=== PATIENT | male | born 1965 | race Caucasian/White ===

== ENCOUNTER 2021-07-03 16:03 | Emergency (ER) | payer BC, SELFPAY ==
[2021-07-03 16:18] VITALS: BP 147/88; PULSE 94; RESP 18; TEMP 37.1; O2SAT 98
--- NOTE | 2021-07-03 16:20 | ED.LOWEXIN ---
HPI - Extremity Injury (Lower) General Chief Complaint: Extremity Problem,Nontraumatic Stated Complaint: Rt leg Pain Time Seen by Provider: 07/03/21 16:20 Source: patient, RN notes reviewed and old records reviewed Mode of arrival: ambulatory Limitations: no limitations History of Present Illness HPI Narrative: 55-year-old male presents to the [facility] with complaints of right calf pain since Tuesday. Has tried taking Tylenol. Patient states that he is concerned that he might have a blood clot. No trauma. No long car rides or plane rides. No discoloration. Positive pedal pulse. Sensation intact in all 5 toes. Capillary refill under 2 seconds. No edema noted. Right and left legs are equivalent. Walks with a normal gait Related Data Home Medications Medication Instructions Recorded Confirmed mesalamine 1.2 g PO DAILY 07/03/21 07/03/21 Allergies Allergy/AdvReac Type Severity Reaction Status Date / Time No Known Allergies Allergy Verified 07/03/21 16:21 Review of Systems Review of Systems: All systems reviewed & are unremarkable except as noted in HPI and below Constitutional: Constitutional: Reports no additional constitutional complaints, Denies chills and Denies fever(s) Eyes: Eyes: Reports no additional eye complaints ENT: Reports system reviewed and no additional complaints, except as documented Cardiovascular: Cardiovascular: Reports no additional cardiovascular complaints and Denies chest pain Respiratory: Respiratory: Reports no additional respiratory complaints, Denies cough and Denies dyspnea Gastrointestinal: Gastrointestinal: Reports no additional gastrointestinal complaints, Denies abdominal pain, Denies nausea and Denies vomiting Musculoskeletal: Musculoskeletal: Reports no additional musculoskeletal complaints Integumentary/Breasts: Skin/Breast: Reports system reviewed and no additional complaints, except as docu Neurologic: Reports system reviewed and no additional complaints, except as documented Psychiatric: Psychiatric: Reports no additional psychiatric complaints Allergic/Immunologic: Allergic/Immunologic: Reports no additional allergic/immunologic complaints PMFSH Past Medical History Medical History (Updated 07/03/21 @ 16:50 by Ewelina Gao) Fusion of spine of cervical region Ulcerative colitis Family History Family History Other Family history of coronary artery disease Hypertension Social History Social History Second hand tobacco smoke exposure: No Alcohol intake: never Comments At the time of my signature, I reviewed and agree with the nursing past medical, surgical, social, and family history. There is no relevant family history pertinent to the patient complaint. Exam Const: General: healthy appearing, no acute distress and alert Nutritional Appearance: well nourished Orientation/consciousness: patient oriented x3 Limitations: no limitations HENMT: Head: normal to inspection Eyes: Pupils: Equal, round and reactive pupils present Neck: Neck: normal visual inspection, no lymphadenopathy and no meningeal signs Chest: Chest palpation & inspection: normal inspection of the chest Resp: Effort & Inspection: normal respiratory effort and no use of accessory muscles Auscultation: clear to auscultation bilaterally, no crackles, no rales, no rhonchi and no wheezes Cardio: Rate: regular rate Rhythm: regular rhythm Back/Spine/Pelvis: Back: no CVA tenderness Skin: General skin exam: normal color Rashes: no rashes Wounds: no wounds Neuro: General: patient oriented x3, moves all extremities, no meningeal signs and no focal motor deficits Speech: normal speech Gait exam (Neuro): Normal gait present Extrem: General: normal to inspection, full ROM, capillary refill normal, normal exam except as noted, no cyanosis and no edema Right lower extremity: normal
== END 2021-07-03 16:35 | disposition home or self-care (01) ==
PROVIDERS: Emergency Provider Nurse Practitioner; PCP Family Medicine
DX: S86.111A Strain of other muscle(s) and tendon(s) of posterior muscle group at lower leg level, right leg, initial encounter (principal); X58.XXXA Exposure to other specified factors, initial encounter
CPT/HCPCS: 99213; G0463

== ENCOUNTER → 2021-10-05 03:18 | Outpatient (CLI) | payer BC, SELFPAY ==
[2021-10-05 11:01] LABS: SARS-CoV-2 RNA PCR Negative
== END ==
PROVIDERS: PCP Family Medicine; Visit Provider Internal Medicine Gastroenterology
DX: Z01.812 Encounter for preprocedural laboratory examination (principal); Z20.822 Contact with and (suspected) exposure to COVID-19
CPT/HCPCS: C9803; U0003; U0005

== ENCOUNTER 2021-10-16 01:36 | Day surgery (SDC) | payer BC, SELFPAY ==
--- NOTE | 2021-10-06 15:20 | PC.NURSE ---
Prior interview completed. Pt updated on new information.
--- NOTE | 2021-10-16 10:44 | WPDANESEPPF ---
Anes - Initial Pre Proc Eval Procedure: Operation Date: 10/16/21 13:00 Proposed Procedures p Colonoscopy - Luis Felipe Branham MD Date/Time: 10/16/21 10:44 Surgeon: Luis Felipe Branham MD Pre Op Diagnosis: ulcerative colitis Patient Data Age: 56 Gender: M Height: 1.78 m Weight: 95 kg Allergies Allergy/AdvReac Type Severity Reaction Status Date / Time No Known Allergies Allergy Verified 10/16/21 11:45 Home Medications Medication Instructions Recorded Confirmed Type mesalamine 1.2 gram tablet,delayed 2.4 g PO DAILY #30 tablet 08/05/21 09/22/21 Rx release Patient hx anesthesia problems: none Family hx anesthesia problems: none Results Review: All pre-operative results and documents have been reviewed as part of the pre-operative evaluation. [facility] Past Medical History Medical History (Updated 10/16/21 @ 10:45 by Nicholas Dubose MD) Fusion of spine of cervical region Obesity (BMI 30.0-34.9) Ulcerative colitis Family History Family History Other Family history of coronary artery disease Hypertension Social History Social History Smoking status: Never smoker Second hand tobacco smoke exposure: No Alcohol intake: never Substance use: never Living arrangements: with family Spiritual care concerns: No Anes - Eval Final PreProcedure Day of Procedure 10/16/21 10:44 Patient weight: obese Heart: regular rate and rhythm Lungs: clear to auscultation and normal air movement Airway: Mallampati scale class II Neurological: alert and oriented Last oral intake: >/= 8 hours ASA classification: III Emergent: no Anesthetic plan: proceed Anesthesia type and monitoring: general GIVS Results Review: All pre-operative results and documents have been reviewed as part of the pre-operative evaluation. Informed Consent: The patient's anesthetic plan and its attendant risks and benefits were discussed with the patient/family/POA. Questions were solicited and answers provided to the satisfaction of the patient/family/POA.
[2021-10-16 11:46] VITALS: BP 128/88; PULSE 115; RESP 20; TEMP 36.3; O2SAT 97
--- NOTE | 2021-10-16 11:50 | P.CONGI_ITS ---
Assessment and Plan Assessment and plan (1) Ulcerative colitis: Code(s): K51.90 - Ulcerative colitis, unspecified, without complications Status: Acute Assessment and Plan: Patient with ulcerative colitis. Clinically in remission while taking Lialda 2.4g p.o. daily. Plan to continue this medication. Surveillance colonoscopy is advised at this time ended intervals in the future. Further recommendations will be given after endoscopy. GI Consult Note Consult date/time: 10/16/21 11:50 HPI: Jakub Tran is a 56 year old male Presents for screening colonoscopy. Patient diagnosed with ulcerative colitis since at least 2013. His current weight appetite bowel movements are normal. Currently takes mesalamine 2.4g p.o. daily. He states his bowel habits are normal with no bleeding. His family history is noncontributory. Last colonoscopy 2018 suggested that his colitis w as in remission. Patient presents today for screening colonoscopy. Review of Systems Review of Systems: All systems reviewed & are unremarkable except as noted in HPI and below PMFSH Past Medical History Medical History (Updated 10/16/21 @ 10:45 by Nicholas Dubose MD) Fusion of spine of cervical region Obesity (BMI 30.0-34.9) Ulcerative colitis Family History Family History Other Family history of coronary artery disease Hypertension Social History Social History Smoking status: Never smoker Second hand tobacco smoke exposure: No Alcohol intake: never Substance use: never Living arrangements: with family Spiritual care concerns: No Meds Home Medications and Allergies Home Medications Medication Instructions Recorded Confirmed Type mesalamine 1.2 gram tablet,delayed 2.4 g PO DAILY #30 tablet 08/05/21 09/22/21 Rx release Allergies Allergy/AdvReac Type Severity Reaction Status Date / Time No Known Allergies Allergy Verified 10/16/21 11:45 Vital Signs Vital Signs - 24 hr 10/16/21 11:46 Temperature 97.4 F L Pulse Rate 115 H Respiratory Rate 20 Blood Pressure 128/88 Pulse Oximetry 97 Exam Narrative: Physical exam reveals patient be alert. Vital signs stable. HEENT exam is unremarkable. Patient is anicteric. Lungs are clear. Heart without murmur. Abdomen bowel sounds are present soft nontender with no organomegaly. Digital external rectal exam is normal.
[2021-10-16] MEDS: LACTATED RINGERS 1,000 ML 150 ML IV CONT (12:00)
[2021-10-16 13:09] VITALS: BP 102/66; PULSE 94; RESP 20; O2SAT 96
[2021-10-16 13:19] VITALS: BP 104/64; PULSE 92; RESP 20; O2SAT 96
[2021-10-16 13:29] VITALS: BP 123/84; PULSE 86; RESP 20; O2SAT 98
== END 2021-10-16 13:51 | disposition home or self-care (01) ==
PROVIDERS: PCP Family Medicine; Visit Provider Internal Medicine Gastroenterology
PROC: 0DJD8ZZ Inspection of Lower Intestinal Tract, Via Natural or Artificial Opening Endoscopic (ICD-10-PCS; CPT 45378; principal; 2021-10-16 13:00)
DX: C19 Malignant neoplasm of rectosigmoid junction (principal); K51.00 Ulcerative (chronic) pancolitis without complications; K64.8 Other hemorrhoids; Z98.1 Arthrodesis status; E66.9 Obesity, unspecified; Z68.31 Body mass index [BMI] 31.0-31.9, adult
CPT/HCPCS: 45380; 88304; 88305; J2001; J2704; J7120

== ENCOUNTER 2022-09-29 21:54 | Inpatient (IN) | payer BC, SELFPAY ==
[2022-09-29] VITALS (12 sets, daily range): BP systolic 133–144; BP diastolic 83–92; PULSE 83–87; RESP 16; TEMP 36.8; O2SAT 97–100
--- NOTE | ~2022-09-29 | XR_ITS ---
Portable chest x-ray Comparison: 09/29/2017 Clinical History: Abdominal pain Findings: Right-sided central venous port is in satisfactory position. Lungs are clear, without foca l consolidation or pleural effusion. Cardiomediastinal silhouette is stable. Bones and soft tissues are unremarkable. Impression: Clear lungs. Support line, as above. Reviewed, dictated and finalized at location M. Impression: Clear lungs. Support line, as above.
--- NOTE | ~2022-09-29 | CT_ITS ---
CT of the Abdomen and Pelvis: Indication: Obstruction Technique: 2.5 mm axial scans were obtained through the abdomen and pelvis following intravenous adm inistration of 100 cc of Omnipaque 350. Dose reduction technique was used on this scan by utilizing a utomated exposure control and iterative reconstruction technique. The dose-length product (DLP) was 7 82.03 mGy-cm. Findings: Scans through the lung bases demonstrate left basilar atelectasis or scarring. The liver, spleen, pancreas, adrenals and kidneys are within normal limits. Gallbladder not visualize d. No evidence of aortic aneurysm. No lymphadenopathy. Right lower quadrant ostomy is present, with apparent prior total colectomy. Multiple distal small robyn wel loops are dilated, leading up just to the orifice of the ostomy Images through the pelvis were performed. Urinary bladder unremarkable. Prostate gland mildly enlarge d. Probable presacral fluid collection measuring 5.5 x 3.2 x 5.1 cm in size.. Trace amount of abdomin opelvic ascites. Impression: Right lower quadrant ostomy with dilated small bowel loops leading up just to the orifice of the osto my. Findings raise the possibly of bowel obstruction at the level of the ostomy itself. Correlate wit h physical exam. 5.5 x 3.2 x 5.1 cm presacral fluid collection. Correlate for abscess versus postoperative seroma or o ther postoperative change related to prior colectomy. Trace abdominopelvic ascites. Reviewed, dictated and finalized at [facility]. Impression: Right lower quadrant ostomy with dilated small bowel loops leading up just to t he orifice of the ostomy. Findings raise the possibly of bowel obstruction at t he level of the ostomy itself. Correlate with physical exam. 5.5 x 3.2 x 5.1 cm presacral fluid collection. Correlate for abscess versus pos toperative seroma or other postoperative change related to prior colectomy. Trace abdominopelvic ascites.
--- NOTE | ~2022-09-29 | XR_ITS ---
Portable upright view of the abdomen Clinical history: NG tube placed Findings: NG tube is in satisfactory position. Mildly distended right upper quadrant small bowel loop s are present. No free air evident. No abnormal mass lesion or calcification is seen. Osseous structu res are intact. Impression: NG tube in satisfactory position. Mildly distended right upper quadrant small bowel loops. Correlate for small bowel obstruction. Reviewed, dictated and finalized at location . Impression: NG tube in satisfactory position. Mildly distended right upper quadrant small bowel loops. Correlate for small robyn wel obstruction.
--- NOTE | ~2022-09-29 | CT_ITS ---
EXAMINATION: CT abdomen pelvis wo con DATE: 09/30/2022 13:06 INDICATION: Small bowel obstruction. TECHNIQUE: Computed tomography (CT) of the abdomen and pelvis was performed without intravenous contr ast. Automated exposure control and iterative reconstruction technique were employed. The dose-length product was 914.63 mGy-cm. COMPARISON: CT abdomen and pelvis 09/30/2022 FINDINGS: The visualized portions of the lung bases demonstrate mild atelectasis. No pleural effusion . The heart size is normal. No pericardial effusion. The nasogastric tube tip is in the stomach. The liver and spleen are normal. There is contrast in the gallbladder. The pancreas and adrenal glands ar e normal. There is cortical thinning of the kidneys. The bladder is distended. There are changes of t otal colectomy. There is a 5.5 x 3.2 x 5.1 cm fluid collection in the presacral region. There is an e nd ileostomy on the last right. There are no dilated loops of bowel. There are no pathologically enla rged lymph nodes. There is trace ascites. There is mild thoracolumbar spondylosis. IMPRESSION: 1. Nonobstructed bowel. 2. 5.5 x 3.2 x 5.1 fluid collection in the presacral region status post colectomy, which may be a ser sis. Reviewed, dictated and finalized at location A. IMPRESSION: 1. Nonobstructed bowel. 2. 5.5 x 3.2 x 5.1 fluid collection in the presacral region status post colecto my, which may be a seroma.
--- NOTE | 2022-09-29 23:33 | ECG_ITS ---
Measurements Intervals [place] Rate: 80 P: 8 NE: 179 QRS: 67 QRSD: 99 T: 48 QT: 369 QTc: 427 Interpretive Statements SINUS RHYTHM BASELINE ARTIFACT- I, II, III, V3 NORMAL ECG NO PREVIOUS ECG AVAILABLE FOR COMPARISON Electronically Signed On 09-30-2022 6:32:17 CDT by Jayme Jolley D.O.
[2022-09-29 23:54] LABS: Basophils Percent Auto 0.3 % (0.2-1.2); Eosinophils Absolute Auto 0.1 K/mm3 (0-0.3); Eosinophils Percent Auto 1.2 % (0-4.4); Hemoglobin 13.8 g/dL (14.0-18.0); Immature Granulocyte Absolute 0.04 K/mm3 (0.00-0.031); Immature Granulocyte Percent A 0.3 % (0-0.5); Lymphocytes Absolute Auto 0.89 K/mm3 (0.9-3.2); Lymphocytes Percent Auto 7.7 % (18.3-44.2); Mean Corpuscular HGB Conc 32.1 g/dl (32-36); Mean Corpuscular Hemoglobin 27.8 pg (26-34); Mean Corpuscular Volume 86.5 fl (80-100); Mean Platelet Volume 9.1 fl (7.4-10.4); Monocytes Absolute Auto 0.6 K/mm3 (0.1-0.6); Monocytes Percent Auto 5.4 % (2.6-8.5); Neutrophils Absolute Auto 9.8 K/mm3 (1.3-6.7); Neutrophils Percent Auto 85.1 % (45.5-73.1); Platelet Count Result 246 k/mm3 (150-375); Red Blood Count 4.97 M/mm3 (4.6-6.20); Red Cell Distribution Width 13.9 % (11.5-14.5); White Blood Count 11.5 K/mm3 (4.5-10.0)
[2022-09-29] MEDS: SODIUM CHLORIDE 0.9% IV 1,000 ML 999 ML IV CONT (23:57)
[2022-09-30] VITALS (70 sets, daily range): BP systolic 110–147; BP diastolic 76–100; PULSE 86–127; RESP 15–38; O2SAT 92–99
[2022-09-30 00:05] LABS: INR 2.9; Prothrombin Time 29.5 Seconds (11.1-14.7)
[2022-09-30 00:06] LABS: Partial Thromboplastin Time 40.8 SECONDS (22.3-36.8)
[2022-09-30 00:07] LABS: Alanine Aminotransferase 23 U/L (6-50); Albumin Level 4.5 g/dL (3.5-5.1); Alkaline Phosphatase 93 U/L (38-126); Anion Gap 6 mmol/L (8-16); Aspartate Amino Transferase 28 U/L (17-59); Bilirubin,Total 0.5 mg/dL (0.2-1.3); Blood Urea Nitrogen 13 mg/dL (9-20); Calcium 8.8 mg/dL (8.4-10.2); Carbon Dioxide 27 mmol/L (22-30); Chloride 106 mmol/L (98-107); Estimated CRCL calculation 83 ml/min; Estimated Glomerular Filt Rate > 60; Glucose 126 mg/dL (65-110); Lipase 95 U/L (23-300); Magnesium 2.2 mg/dL (1.6-2.3); Potassium 4.5 mmol/L (3.4-5.0); Sodium 139 mmol/L (137-145)
[2022-09-30] MEDS: ONDANSETRON INJ 4 MG/2 ML VIAL 8 MG IV PUSH (01:13)
[2022-09-30] MEDS: HYDROmorphone HCL INJ (*CRX) 1 MG/ML SYR 0.5 MG IV PUSH (01:13)
--- NOTE | 2022-09-30 02:27 | ED.GENADULT ---
HPI - General Adult General Chief complaint: Abdominal Pain Stated complaint: blocked ostomy Time Seen by Provider: 09/29/22 22:53 History of Present Illness HPI narrative: This is a 57-year-old male with an ostomy secondary to colon cancer. Earlier today around 630 the patient started experiencing sharp abdominal pain to the left of his ostomy site. Is nonradiating, 6/10 intensity and comes and goes. He has never experienced pain like this before there are no alleviating or exacerbating factors. He has had an episode of nausea and vomiting. He notes that he has had nothing come out of his ostomy site since then which is abnormal for him. He denies fever, chills, chest pain, difficulty breathing or urinary symptoms. Patient's surgeon is Dr. Hernández at [place]. Patient's GI doctor is Dr. Branham. Related Data Allergies Allergy/AdvReac Type Severity Reaction Status Date / Time No Known Allergies Allergy Verified 09/29/22 22:28 [facility] Past Medical History Medical History Adenocarcinoma of colon Fusion of spine of cervical region Obesity (BMI 30.0-34.9) Ulcerative colitis Surgical History Surgical History H/O ileostomy Family History Family History Mother [place] cell cancer Other Family history of coronary artery disease Hypertension Social History Social History Smoking status: Never smoker Second hand tobacco smoke exposure: No Alcohol intake: never Substance use: never Living arrangements: with family Spiritual care concerns: No Exam Narrative: APPEARANCE: No apparent distress. Head: atraumatic. EYES: EOMI, NOSE: Atraumatic NECK: Trachea midline RESPIRATORY: No increased rate of breathing , clear to auscultation bilateral CARDIOVASCULAR: RRR, no peripheral edema ABDOMINAL: tenderness palpation in the midline next to his ostomy. No guarding no rebound. Abdomen is not distended. No contents in the ostomy. MUSCULOSKELETAL: No obvious deformities NEURO: Alert. Moving 4/4 extremities SKIN:: Warm, dry. Normal color PSYCHIATRIC: Normal affect Course Vital Signs Vital signs: Vital Signs Temperature 98.2 F 09/29/22 22:23 Pulse Rate 87 09/29/22 22:23 Respiratory Rate 16 09/29/22 22:23 Blood Pressure 140/92 H 09/29/22 22:23 Pulse Oximetry 99 09/29/22 22:23 Oxygen Delivery Room Air 09/29/22 22:23 Temperature 98.2 F 09/29/22 22:23 Pulse Rate 99 09/30/22 00:45 Respiratory Rate 17 09/30/22 00:45 Blood Pressure 133/83 09/29/22 23:31 Pulse Oximetry 97 09/30/22 00:45 Oxygen Delivery Room Air 09/29/22 22:23 Medical Decision Making MDM Narrative Medical decision making narrative: -Presentation: 57-year-old male presenting ED with decreased output from his ostomy. 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 INR was therapeutic at 2.9. Metabolic panel is unremarkable. Urine was not indicative of infection. Chest x-ray was unremarkable. My interpretation of CT abdomen pelvis showed dilated loops of bowel with air-fluid levels. This is consistent with obstruction. CT abdomen pelvis was read by stat read as: postoperative changes in the right lower quadrant, 2.9 x 5 x 7 cm presacral fluid collection, no free air intestinal obstruction, slight hyperemia associated inflammatory changes involving a few
[2022-09-30 03:03] LABS: Appearance Urine Clear (Clear); Bilirubin Urine Negative (Negative); Blood Urine Negative (Negative); Color Urine Yellow (Yellow); Glucose Urine UA Negative (Negative); Ketones Urine Negative (Negative); Leukocyte Esterase Ur Negative LEU/UL (Negative); Nitrate Urine Negative (Negative); Protein Urine Negative (Negative); Urobilinogen Urine 0.2 mg/dL (<2.0); pH Urine 5.5 (5.0-9.0)
--- NOTE | 2022-09-30 03:13 | PM.IMHP ---
H&P: HPI History of Present Illness Date/Time: 09/30/22 03:13 Chief Complaint: 57 years old male with past medical history of adeno carcinoma of the colon status post ileostomy ulcerative colitis presents to the hospital with nausea associated with vomiting multiple times a day associated with decreased output from colostomy patient also complains of generalized abdominal pain dull in nature no aggravating or relieving factors at the ER patient was found to have probable bowel obstruction unlikely patient has enteritis pending final CT scan reading patient was given IV fluid pain control Zofran symptom has improved patient was admitted to the hospital for further evaluation and treatment of bowel obstruction Review of Systems Review of Systems: Twelve system review was done negative except above PMFSH Past Medical History Medical History Adenocarcinoma of colon Fusion of spine of cervical region Obesity (BMI 30.0-34.9) Ulcerative colitis Surgical History Surgical History H/O ileostomy Family History Family History Mother [place] cell cancer Other Family history of coronary artery disease Hypertension Social History Social History Smoking status: Never smoker Second hand tobacco smoke exposure: No Alcohol intake: never Substance use: never Living arrangements: with family Spiritual care concerns: No Meds Home Medications and Allergies Home Medications Medication Instructions Recorded Confirmed Type enoxaparin 80 mg/0.8 mL 80 mg (0.8 mL) subcut Q12H #8 mL 07/08/22 07/08/22 Rx subcutaneous syringe (Lovenox) pregabalin 50 mg capsule 50 mg PO BID #1 cap 07/08/22 07/08/22 Rx tamsulosin 0.4 mg capsule See Rx Instructions .Route 07/09/22 Rx .COMPLEX #90 caps Allergies Allergy/AdvReac Type Severity Reaction Status Date / Time No Known Allergies Allergy Verified 09/29/22 22:28 Vital Signs Vital Signs - 24 hr 09/29/22 22:23 03 22:34 09/29/22 22:36 Temperature 98.2 F Pulse Rate 87 Respiratory Rate 16 Blood Pressure 140/92 H 144/84 H Pulse Oximetry 99 100 Oxygen Delivery Room Air 09/29/22 22:45 09/29/22 22:46 09/29/22 23:00 Temperature Pulse Rate Respiratory Rate Blood Pressure 136/84 Pulse Oximetry 97 98 98 Oxygen Delivery 09/29/22 23:01 09/29/22 23:15 09/29/22 23:16 Temperature Pulse Rate Respiratory Rate Blood Pressure 139/90 140/85 Pulse Oximetry 98 97 97 Oxygen Delivery 09/29/22 23:30 09/29/22 23:31 09/29/22 23:49 Temperature Pulse Rate 83 Respiratory Rate Blood Pressure 133/83 Pulse Oximetry 98 98 Oxygen Delivery 09/30/22 00:00 09/30/22 00:15 09/30/22 00:30 Temperature Pulse Rate 88 91 90 Respiratory Rate 19 19 19 Blood Pressure Pulse Oximetry 98 99 97 Oxygen Delivery 09/30/22 00:45 09/30/22 01:12 09/30/22 01:15 Temperature Pulse Rate 99 94 87 Respiratory Rate 17 24 H 22 H Blood Pressure Pulse Oximetry 97 99 98 Oxygen Delivery 09/30/22 01:17 09/30/22 01:30 09/30/22 01:31 Temperature Pulse Rate 92 95 97 Respiratory Rate 26 H 16 16 Blood Pressure 146/85 H 134/78 Pulse Oximetry 98 92 94 Oxygen Delivery 09/30/22 01:45 09/30/22 01:46 09/30/22 02:00 Temperature Pulse Rate 96 97 96 Respiratory Rate 16 15 17 Blood Pressure 132/81 Pulse Oximetry 94 92 Oxygen Delivery 09/30/22 02:01 09/30/22 02:15 09/30/22 02:16 Temperature Pulse Rate 98 98 100 Respiratory Rate 16 17 16 Blood Pressure 134/80 139/86 Pulse Oximetry 95 95 Oxygen Delivery 09/30/22 02:30 09/30/22 02:31 Temperature Pulse Rate 99 100 Respiratory Rate 18 18 Blood Pressure 141/84 H Pulse Oximetry 95 Oxygen Delivery Exam N
[2022-09-30 03:15] LABS: Specific Grav Ur 1.038 (1.001-1.035)
[2022-09-30 03:16] LABS: Add Urine Microscopic? NO
[2022-09-30] MEDS: ONDANSETRON INJ 4 MG/2 ML VIAL IV PUSH (05:59)
[2022-09-30 06:12] LABS: Basophils Percent Auto 0.2 % (0.2-1.2); Eosinophils Percent Auto 0.1 % (0-4.4); Hematocrit 44.6 % (42.0-52.0); Hemoglobin 14.3 g/dL (14.0-18.0); Immature Granulocyte Absolute 0.05 K/mm3 (0.00-0.031); Immature Granulocyte Percent A 0.4 % (0-0.5); Lymphocytes Absolute Auto 1.33 K/mm3 (0.9-3.2); Lymphocytes Percent Auto 10.3 % (18.3-44.2); Mean Corpuscular HGB Conc 32.1 g/dl (32-36); Mean Corpuscular Hemoglobin 27.9 pg (26-34); Mean Corpuscular Volume 86.9 fl (80-100); Mean Platelet Volume 9.4 fl (7.4-10.4); Monocytes Absolute Auto 0.7 K/mm3 (0.1-0.6); Monocytes Percent Auto 5.7 % (2.6-8.5); Neutrophils Absolute Auto 10.7 K/mm3 (1.3-6.7); Neutrophils Percent Auto 83.3 % (45.5-73.1); Platelet Count Result 258 k/mm3 (150-375); Red Blood Count 5.13 M/mm3 (4.6-6.20); Red Cell Distribution Width 13.9 % (11.5-14.5); White Blood Count 12.9 K/mm3 (4.5-10.0)
[2022-09-30 06:31] LABS: Alanine Aminotransferase 24 U/L (6-50); Albumin Level 4.4 g/dL (3.5-5.1); Alkaline Phosphatase 95 U/L (38-126); Anion Gap 7 mmol/L (8-16); Aspartate Amino Transferase 27 U/L (17-59); Bilirubin,Total 0.5 mg/dL (0.2-1.3); Blood Urea Nitrogen 10 mg/dL (9-20); Calcium 8.6 mg/dL (8.4-10.2); Carbon Dioxide 24 mmol/L (22-30); Chloride 107 mmol/L (98-107); Estimated CRCL calculation 93 ml/min; Estimated Glomerular Filt Rate > 60; Glucose 141 mg/dL (65-110); Potassium 4.5 mmol/L (3.4-5.0); Sodium 138 mmol/L (137-145)
[2022-09-30 07:56] LABS: INR 2.4; Prothrombin Time 24.9 Seconds (11.1-14.7)
[2022-09-30] MEDS: SODIUM CHLORIDE 0.9% IV 1,000 ML 100 ML IV CONT (08:22)
--- NOTE | 2022-09-30 10:25 | PC.NURSE ---
dr obrien contacted regarding order for pts heparin bid. pts inr this am 2.4 instructed to hold heparin today and repeat inr in the am.
--- NOTE | 2022-09-30 11:07 | PC.NURSE ---
Per Dr Banegas, hold heparin due to his INR result of 2.4
--- NOTE | 2022-09-30 13:30 | PC.NURSE ---
Spoke with Dr Urrutia and he gave verbal order to remove NG tube and give patient food and drink.
--- NOTE | 2022-09-30 13:34 | PC.NURSE ---
NG tube removed.
--- NOTE | 2022-09-30 14:23 | PC.NURSE ---
Food tray ordered for patient. Patient requests soft foods at this time
--- NOTE | 2022-09-30 15:09 | PCCCNOTE ---
Care Coordination met with pt. this morning to discuss discharge planning. Pt.'s current D/C plan is to return home with his . Pt. is independent with ADLs and ambulation. He has a CPAP at home. Pt. had ostomy blockage but has passed. His NG tube has been removed and his diet will be advanced. Pt.'s will drive him home at D/C. He has no D/C needs.
--- NOTE | 2022-09-30 16:18 | PM.DS ---
DS: Admitting Diagnosis Discharge Date 09/30/22 Admitting Diagnosis SBO DS: Discharge Diagnosis Discharge Diagnosis Plan 1) Adenocarcinoma of colon: ?Code(s): C18.9 - Malignant neoplasm of colon, unspecified ?Status:?Acute ?Assessment and Plan: Status post total colectomy status post ileostomy Get old records Follow-up with PCP (2) Ulcerative colitis: ?Code(s): K51.90 - Ulcerative colitis, unspecified, without complications ?Status:?Acute ?Assessment and Plan: Patient had total colectomy (3) Bowel obstruction: ?Code(s): K56.609 - Unspecified intestinal obstruction, unspecified as to partial versus complete obstruction ?Status:?Acute ?Assessment and Plan: Ileostomy started flowing this morning and repeat Ct showed resolution of obstruction, with presacral seroma. Patietn will f/u with PCP in 3-5 days, surgery as scheduled Presacral seroma f/u with gen surgery as scheduled (4) Portal vein thrombosis: ?Code(s): I81 - Portal vein thrombosis ?Status:?Acute ?Assessment and Plan: Patient had recent thrombosis of portal vein associated with DVT of right leg was treated INR 2.9, conintue Warfarin and f/u with PCP for monitoring DS: Summary Hospital Course Hospital Course: presented to the ER with SBO, NG tube placed, however this morning patietn noticed that the ileostomy bag started receiving content, NG tube was removed, repeat Ct showed resolution of obstruction, patient tolerated diet and was discharged home to follow with PCP and Surgery. CT showed presacral seroma likely from surgery. F/u with Surgery for further care Time Spent with Patient Time attestation: Total time spent providing and/or coordinating discharge services: DS: Data Data Completed and Pending Labs on day of discharge: Labs from last 24 hours 09/30/22 09/30/22 09/30/22 07:39 05:59 05:59 WBC 12.9 H RBC 5.13 Hgb 14.3 Hct 44.6 MCV 86.9 MCH 27.9 MCHC 32.1 RDW 13.9 Plt Count 258 MPV 9.4 Immature Gran % (Auto) 0.4 Neut % (Auto) 83.3 H Lymph % (Auto) 10.3 L [place] % (Auto) 5.7 Eos % (Auto) 0.1 Baso % (Auto) 0.2 Lymph # (Auto) 1.33 [place] # (Auto) 0.7 H Eos # (Auto) 0.0 Baso # (Auto) 0.0 Abs Immat Gran (auto) 0.05 H Absolute Neuts (auto) 10.7 H Absolute Nucleated RBC 0.0 Nucleated RBC % 0.0 PT 24.9 H INR 2.4 APTT Sodium 138 Potassium 4.5 Chloride 107 Carbon Dioxide 24 Anion Gap 7 L BUN 10 Creatinine 0.80 Estim Creat Clear Calc 93 Estimated GFR > 60 Glucose 141 H Lactic Acid Calcium 8.6 Magnesium Total Bilirubin 0.5 AST 27 ALT 24 Alkaline Phosphatase 95 Total Protein 7.0 Albumin 4.4 Lipase Urine Color Urine Appearance Urine pH Ur Specific [place] Urine Protein Urine Glucose (UA) Urine Ketones Ur Blood (Man) Urine Nitrate Urine Bilirubin Urine Urobilinogen Leukocyte Esterase Rfl 09/30/22 09/29/22 09/29/22 02:57 23:49 23:49 WBC RBC Hgb Hct MCV MCH MCHC RDW Plt Count MPV Immature Gran % (Auto) Neut % (Auto) Lymph % (Auto) [place] % (Auto) Eos % (Auto) Baso % (Auto) Lymph # (Auto) [place] # (Auto) Eos # (Auto) Baso # (Auto) Abs Immat Gran (auto) Absolute Neuts (auto) Absolute Nucleated RBC Nucleated RBC % PT INR APTT Sodium 139 Potassium 4.5 Chloride 106 Carbon Dioxide 27 Anion Gap 6 L BUN 13 Creatinine 0.90 Estim Creat Clear Calc 83 Estimated GFR > 60 Glucose 126 H Lactic Acid 1.0 Calcium 8.8 Magnesium 2.2 Total Bilirubin 0.5 AST 28 ALT 23 Alkaline Phosphatase 93 Total Protein 7.0 Albumin 4.5 Lipase 95 Urine Color Yellow Urine Appearance Clear Urine pH 5.5 Ur Specific [place] 1.038 H Urine Protein
== END 2022-09-30 17:08 | disposition home or self-care (01) | DRG 389 ==
LOC: ANHED 09-30 16:58 → ANH3MEDSUR 10-06 08:50
PROVIDERS: Admitting Provider Internal Medicine; Emergency Provider Emergency Medicine; PCP Family Medicine; Visit Provider Internal Medicine
DX: K56.609 Unspecified intestinal obstruction, unspecified as to partial versus complete obstruction (principal); C18.9 Malignant neoplasm of colon, unspecified; K51.90 Ulcerative colitis, unspecified, without complications; K91.872 Postprocedural seroma of a digestive system organ or structure following a digestive system procedure; Z93.2 Ileostomy status; Z86.718 Personal history of other venous thrombosis and embolism; Z98.1 Arthrodesis status
CPT/HCPCS: 36415; 71045; 74176; 74177; 80053; 81003; 83605; 83690; 83735; 85025; 85610; 85730; 93005; 96361; 96374; 96375; 99285; J1170; J2405; J7030; Q9967

== ENCOUNTER 2022-11-16 16:44 | Emergency (ER) | payer BC, SELFPAY ==
[2022-11-16 17:04] VITALS: BP 128/89; PULSE 94; RESP 18; TEMP 36.8; O2SAT 97
--- NOTE | 2022-11-16 17:04 | ED.EYEPROB ---
HPI - Eye Problem General Chief complaint: Eye Problems Stated complaint: swelling near rt eye Time Seen by Provider: 11/16/22 17:20 Mode of arrival: ambulatory Limitations: no limitations History of Present Illness HPI Narrative: 57-year-old male presents with concern for redness, tenderness, swelling that started in his right islam area yesterday. He reports the pain is radiating down to his teeth and down his neck. He denies swelling, redness in the neck. Denies dental pain. He reports blurry vision in the right eye. He denies headache, stabbing headache, fever, aches, chills, sweats. Denies pain in the eye. Denies drainage from the eye. Patient has a history of shingles, he says he usually gets on his back. Patient reports the swelling on the face is tender to touch but is not painful. MD chief complaint: other (Facial swelling, blurry vision) Related Data Home Medications Medication Instructions Recorded Confirmed warfarin 1 mg tablet 1 mg PO [id number] 10/27/22 11/16/22 warfarin 10 mg tablet 10 mg PO QMWF 10/27/22 11/16/22 Allergies Allergy/AdvReac Type Severity Reaction Status Date / Time No Known Allergies Allergy Verified 11/16/22 17:08 Review of Systems Review of Systems: CONSTITUTIONAL: Denies malaise, chills, sweats, or fever. EYES: Reports blurry vision in the right eye. Denies red eye pain, redness, or discharge. ENT: Denies rhinorrhea, congestion, sinus pain, otalgia or sore throat. CARDIOVASCULAR: Denies chest pain, palpitations, or edema. RESPIRATORY: Denies cough or dyspnea. GASTROINTESTINAL: Denies nausea, vomiting SKIN: Reports redness, swelling, tenderness to the right side of the face MUSCULOSKELETAL: Denies myalgia. NEUROLOGIC: Denies numbness, weakness, or headache. All systems reviewed & are unremarkable except as noted in HPI and below [facility] Past Medical History Medical History Adenocarcinoma of colon Fusion of spine of cervical region Obesity (BMI 30.0-34.9) Ulcerative colitis Surgical History Surgical History H/O ileostomy Family History Family History Mother Frakes cell cancer Other Family history of coronary artery disease Hypertension Social History Social History Smoking status: Never smoker Second hand tobacco smoke exposure: No Alcohol intake: never Substance use: never Living arrangements: with family Spiritual care concerns: No Comments At time of signature, agree with nursing past medical, surgical, social and family history. There is no relevant family history pertinent to the presenting complaint Exam Narrative: GENERAL: Well-appearing, well-nourished, and in no acute distress. HEAD: Normocephalic, atraumatic. EYES: PERRLA, sclera clear, and EOMI. No nystagmus. Bilateral sclera and conjunctivae clear, no drainage noted. Facial erythema, edema and induration do not involve the eyelids ENT: Nares clear, turbinates pink, no rhinorrhea or epistaxis. Mucous membranes moist. TM pearly grullon with sharp light reflex bilaterally; no tragal tenderness. Oropharynx without erythema or lesions. Tonsils not enlarged and without exudate. NECK: Supple. No lymphadenopathy. CHEST: No respiratory distress. Clear to auscultation. No bony deformities, no asymmetry. Speaks in full sentences. HEART: Regular rate and rhythm. No murmur heard. Normal peripheral pulses. SKIN: Warm, dry. Approximately 5 by 4 cm area of induration, erythema, warmth, tenderness noted near the hairline, slightly extending into the hairline below the right islam. The area has 1 yellow vesicle noted, some redness extending into the hairline. Temporal artery appears unremarkable, is not tender NEURO: Alert and oriented x3. PSYCH: Normal mood and
== END 2022-11-16 17:44 | disposition home or self-care (01) ==
PROVIDERS: Emergency Provider Nurse Practitioner; PCP Family Medicine
DX: R22.0 Localized swelling, mass and lump, head (principal)
CPT/HCPCS: 99213; G0463

== ENCOUNTER 2024-10-31 16:44 | Emergency (ER) | payer BC, SELFPAY ==
--- NOTE | 2024-10-31 16:47 | ED.WOUNDLAC ---
HPI - Wound/Laceration General Chief Complaint: Wound/Laceration Stated Complaint: bite on wrist Time Seen by Provider: 10/31/24 16:46 Source: patient Mode of arrival: ambulatory Limitations: no limitations History of Present Illness HPI narrative: Patient is a 59-year-old male who presents with insect bite to left wrist along with right hip. Patient states he noticed bites to wrist 3 days ago that have had some clear/brown drainage. Patient states he is been using antibiotic ointment and keeping it covered. Patient reports spouse removed tick from right hip. Patient states it had been there for maybe 24-48 hours. Denies any fever, chills, nausea vomiting, diarrhea. Related Data Home Medications ?Medication ?Instructions ?Recorded ?Confirmed ?Last Taken ?Type apixaban 5 mg tablet (Eliquis) mg 10/31/24 Unknown History Allergies Allergy/AdvReac Type Severity Reaction Status Date / Time No Known Allergies Allergy Verified 10/31/24 17:24 Review of Systems Review of Systems: All systems reviewed & are unremarkable except as noted in HPI and below Constitutional: Constitutional: Denies body ache(s), Denies chills, Denies fatigue, Denies fever(s), Denies headache(s), Denies malaise and Denies weakness Eyes: Eyes: Denies blurry vision, Denies irritation and Denies loss of vision ENT: Denies otalgia, Denies headache(s), Denies nasal discharge, Denies sinus pain and Denies sore throat Cardiovascular: Cardiovascular: Denies chest pain, Denies irregular heart rhythm and Denies dyspnea Respiratory: Respiratory: Denies dyspnea Gastrointestinal: Gastrointestinal: Denies abdominal pain, Denies melena, Denies hematochezia, Denies diarrhea, Denies nausea and Denies vomiting Musculoskeletal: Musculoskeletal: Denies back pain, Denies myalgias and Denies arthralgias Integumentary/Breasts: Skin/Breast: Denies pruritus, Reports erythema, Denies rash, Reports skin swelling and Reports wounds Neurologic: Denies headache(s), Denies loss of vision and Denies weakness Psychiatric: Psychiatric: Reports no additional psychiatric complaints Endocrine: Endocrine: Denies fatigue PMFSH Past Medical History Medical History Adenocarcinoma of colon Fusion of spine of cervical region Obesity (BMI 30.0-34.9) Ulcerative colitis Surgical History Surgical History H/O ileostomy Family History Family History Mother [place] cell cancer Other Family history of coronary artery disease Hypertension Social History Social History Smoking status: Never smoker Second hand tobacco smoke exposure: No Alcohol intake: never Substance use: never Living arrangements: with family Spiritual care concerns: No Comments At time of signature, agree with nursing past medical, surgical, social and family history. There is no relevant family history pertinent to the presenting complaint. Exam Const: General: cooperative, healthy appearing, comfortable, no acute distress and well nourished Nutritional Appearance: well nourished Orientation/consciousness: patient oriented x3 Limitations: no limitations HENMT: Head: normal to inspection, normocephalic and atraumatic Ears: hearing grossly normal bilaterally and external ears normal Face/Nose/Sinus: Normal external nose present, normal facial exam and face symmetric Face and sinus: normal facial exam and face symmetric Mouth: Yes lip normal Eyes: General: appearance normal, both eyes and all related structures Alignment and Position: alignment normal and position normal Periorbital: periorbital findings normal Eyelids: eyelids normal Pupils: Equal, round and reactive pupils present EOM: EOMs intact bilaterally Neck: Neck: normal visual inspection, full ROM and supple Chest: Chest palpation & inspection: normal inspection of the chest Resp: Effort & Inspection: normal respiratory effort and able to speak in complete sentences Auscultation: clear to auscultation bilaterally Cardio: Rate: regular rate Rhythm: regular rhythm Heart sounds: S1 normal heart sound present and S2 normal heart sound present GI: Inspection: normal to inspection Skin: General skin exam: normal color and no rashes or lesions noted Full body images:  1. 2 cm area of erythema with induration and warmth. Center bite. 2. 3 small bumps with erythema. One is oozing clear fluid. no surrounding erythema Neuro: General: patient oriented x3 and moves all extremities Cranial nerves: Yes Equal, round and reactive pupils present Speech: normal speech Gait exam (Neuro): Normal gait present Extrem: General: normal to inspection, full ROM and no edema Psych: Appearance: grossly normal and well kempt Mental Status: mental status grossly normal Speech and movement: Normal speech and movement present Affect: normal affect Attitude: cooperative Thought process: Normal thought process present Course Course Emergency Course: Patient is aware of diagnosis, understands and agrees to treatment plan. Anticipatory guidance given. Patient agrees to follow-up as directed and is aware of reasons to seek care at the emergency department. Portions of this record may have been created with voice recognition software Level of Care: Express Care Visit Vital Signs Vital signs: Vital Signs Temperature 36.9 C 10/31/24 17:05 Pulse Rate 86 10/31/24 17:05 Respiratory Rate 16 10/31/24 17:05 Blood Pressure 115/71 10/31/24 17:05 Pulse Oximetry 98 10/31/24 17:05 Oxygen Delivery Room Air 10/31/24 17:05 Temperature 36.9 C 10/31/24 17:05 Pulse Rate 86 10/31/24 17:05 Respiratory Rate 16 10/31/24 17:05 Blood Pressure 115/71 10/31/24 17:05 Pulse Oximetry 98 10/31/24 17:05 Oxygen Delivery Room Air 10/31/24 17:05 Reviewed MDM - Wound/Laceration MDM Narrative Medical decision making narrative: Will treat with antibiotics due to cellulitis surrounding tech by on buttocks. Will prescribed doxycycline to cover for Lyme disease as well Pt well hydrated appearing, in no respiratory distress, hemodynamically stable. Recommend supportive care. The patient is stable at time of discharge the clinical impression was discussed and the patient was given the opportunity to ask questions, which were addressed as completely as possible given the information available at present. Anticipatory guidance and return to care precautions were discussed and the importance of primary care follow-up was stressed and encouraged. The patient voiced understanding of the plan, indications to return, and the need for follow-up. Exam findings show no acute concerns or changes Patient is appropriate for outpatient treatment and follow-up. Differential Diagnosis Differential diagnosis: Likely other (Insect bite, cellulitis, abrasion,) Medical Records Attestation: I reviewed the patient's medical records. Discharge Plan Discharge Clinical Impression: Cellulitis, Tick bite Patient Disposition: Home Condition: Stable Instructions: Cellulitis (ED), Tick Bite (ED) Additional Instructions: Take antibiotics as prescribed Ticks should be removed promptly with tweezers (fine-tipped forceps). Prevention is saldana. If you are in the wooded area, tall grass, or brush: -Wear long pants and long sleeves. -Wear socks over the outside of pant legs. -Tuck shirts into pants. -Wear light-colored clothes so that ticks can easily be spotted. -Lyons clothes and exposed skin with insect repellant. -Frequently check clothes and skin for ticks Avoid scratching the affected area, clean with soap and water only. Watch for sign of skin infection include but not limited to redness, swollen, severe pain or fever to seek evaluation. Please schedule a followup visit with your personal physician for further evaluation and treatment or If your symptoms persist, change or worsen significantly before you can contact your personal physician then please, without delay, go to the emergency department for further evaluation Patient Language: Swedish Prescriptions: New doxycycline monohydrate 100 mg tablet 100 mg PO BID 7 Days Qty: 14 0RF mupirocin 2 % ointment 1 applic topical BID Qty: 15 0RF No Action Eliquis 5 mg tablet Follow-up/Referrals: Dave,Bobby Ugarte MD [Primary Care Provider] - 3 Days Time of Disposition: 17:41
--- OUTSIDE RECORDS SUMMARY | 2024-10-31 16:55 | XMS_ITS | Encounter Summary ---
Author Organization [facility] Address [address] [place] [address] Phone Care Team Providers Care Mold Designer Name Role Phone Noelle Sullivan MD Primary Care Provider [phone] Victor M Hernández MD Unavailable [phone] Luis Felipe Branham MD Unavailable [phone] Herbert Hung MD Unavailable [phone] Bobby Acosta DO Primary Care Provider + Encounter Details Date Type Department Care Team (Latest Contact Info) Description 09/29/2022 Orders Only [facility] Scanning, Provider Social History Tobacco Use Types Packs/Day Years Used Date Smoking Tobacco: Never Smokeless Tobacco: Never AUDIT-C Answer Date Recorded Q1: How often do you have a drink containing alc ohol? Monthly or less 06/17/2022 Q2: How many drinks containi ng alcohol do you have on a typical day when you are drinking? 1 or 2 06/17/2022 Q3: How often do you have si x or more drinks on one occasion? Never 06/17/2022 PHQ-2 Answer Date Recorded PHQ-2 Total Score (If total score is 3 or more points, staff should administer the PHQ-9) 0 05/03/2022 Sex and Gender Information Value Date Recorded Sex Assigned at Not on file Legal Sex Male 10:04 AM CDT Gender Identity Not on file Sexual Orientation Not on file documented as of this encounter Plan of Treatment Not on file documented as of this encounter Procedures Procedure Name Priority Date/Time Associated Diagnosis Comments SCAN - RADIOLOGY/IMAGING 023 12:08 PM CDT CARDIOLOGY DOCUMENT SCAN 09/29/2022 documented in this encounter Results * SCAN - RADIOLOGY/IMAGING (11/05/2022 12:08 PM CDT) Anatomical Region Laterality Modality Other us Provider Scanning Edited Result - Final * CARDIOLOGY DOCUMENT SCAN (09/29/2022) Anatomical Region Laterality Modality Other us Provider Scanning CV CARDIAC SERVICES PROCEDURES Edited Result - Final documented in this encounter Visit Diagnoses Not on filedocumented in this encounter Additional Health Concerns Infection Onset Date Last Indicated Resolved Time COVID: Suspected 08/29/2024 08/29/2024 08/29/2024 8:[address] [facility] documented as of this encounter Care Teams Mold Designer Relationship Specialty Start Date End Date Noelle Sullivan MD PCP - General Family Medicine 10/22/21 01/31/23 Bobby Acosta DO [address] [address] PCP - General Family Medicine 02/01/23 Victor M Hernández MD [address] [facility] [id number] [place] [address] Surgeon Colon and Rectal Surgery 10/27/21 Luis Felipe Branham MD [address] [facility] [address] [place] [address] [address] [place] [address] Field Staff Manager Gastroenterology 10/27/21 Herbert Hung MD [address] [facility] [address] [place] [address] Medical Oncologist Medical Oncology 11/10/21 documented as of this encounter
--- OUTSIDE RECORDS SUMMARY | 2024-10-31 16:55 | XMS_ITS | Clinical Summary ---
Author Organization [facility] Address [address] [place] [address] Care Team Providers Care Tape Weaver Name Role Phone Victor M Hernández MD Unavailable [phone] Luis Felipe Branham MD Unavailable [phone] Herbert Hung MD Unavailable [phone] Bobby Acosta DO Primary Care Provider + Allergies No known active allergies Medications ostomy supplies misc Patient has an ileostomy and needs supplies to manage. [employer] ring [phone] 20 each 11 3 Active Additional Information Patient not taking.Reported on 10/23/2024 nortriptyline (PAMELOR) 50 mg capsule Take 1 capsule (50 mg total) by mouth nightly 30 capsule 11 3 Active Additional Information Patient not taking.Reported on 01/24/2024 tadalafiL (CIALIS) 20 mg tablet Take 1 tablet (20 mg total) by mouth daily as needed for erectile dysfunction 4 tablet 11 4 Active cholecalciferol (VITAMIN D-3) 50,000 unit capsuleIndicati ons:Vitamin D deficiency Take 1 capsule (50,000 Units total) by mouth once a week 12 capsule 2 5 07/25/19 26 Active Additional Information Patient not taking.Reported on 10/23/2024 apixaban (ELIQUIS) 5 mg tablet Take 1 tablet (5 mg total) by mouth 2 (two) times a day 60 tablet 5 5 Active sildenafiL (VIAGRA) 100 mg tablet TAKE 1 TABLET BY MOUTH NEEDED FOR ERECTILE DYSFUNCTION 6 tablet 11 5 Active Active Problems Problem Noted Date Diagnosed Date 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 Denied need for supplies. [facility] Assessment & Plan (11/17/2023 2:50 PM CDT): Due to continued symptoms, the patient will continue CPAP at 5-20 cm water pressure. Denied need for supplies. [facility] Assessment & Plan (07/29/2023 11:22 AM COLD MILL OPERATOR): The patient was diagnosed with obstructive sleep apnea in 2018. He would prefer not to go back to CPAP therapy but is once again having symptoms of untreated KIAN since he stopped using CPAP about 1 year ago. He would like to be re-evaluated and then consider therapy with either an oral appliance or the inspire device. I will order a nocturnal polysomnogram with a split night protocol if necessary and no MSLT and he will follow-up with me in 6 weeks. History of rectal cancer 06/29/2023 History of shingles 02/01/2023 Drug-induced polyneuropathy 02/01/2023 Fever and chills 04/14/2022 Assessment & Plan (04/16/2022 2:28 AM CDT): Febrile to 100.6 at home with nightsweats. Afebrile in ED. Localizing symptom of watery diarrhea most concerning for C diff recurrence. CBC with wbc 8.7 with left shift. - Infectious workup pending: C diff neg, blood culture x2 NGTD, UA neg, covid neg, CXR no acute abnormality - Lactate 1.4, receiving IVF for dehydration, may be reason behind lower AM count - Holding empiric abx as pt remains afebrile, HDS, infectious workup pending Ulcerative colitis 04/14/2022 Assessment & Plan (04/16/2022 11:03 PM CDT): F/w Dr. Branham since 2005. Dx 26 years ago. Current Rx: Mesalamine 4.8gm daily, entecort. Pt evaluated by GI during previous hospitalization, favored C diff over UC flare for worsening diarrhea. - 03/10/22: ESR 34, CRP 36.9, fecal calprotectin >3000 - Continue mesalamine 4.8gm daily - Per prior GI recs during previous admission, will hold entecort in s/o possible recurrent C diff - Calprotectin elevated 3000, ESR and CRP elevated 35.5 and 38.8 respectively. - Restart oral budenoside 9mg daily. Dehydration 04/14/2022 Assessment & Plan (04/14/2022 6:08 AM CDT): 2/2 GI losses from watery stool. - s/p IVF IL bolus - Continue maintenance IVF Deep vein thrombosis (DVT) of right lower extrem ity 04/14/2022 Assessment & Plan (04/14/2022 6:10 AM CDT): Dx 02/25/22 on LED. - Continue apixiban 5mg BID Chest pain 04/14/2022 Assessment & Plan (04/14/2022 6:15 AM CDT): Brief episode of chest pain during chemo infusion, self resolving after a 1-2 mins. Evaluated by cardiology during prior admission who suspected coronary vasospasms from 5FU infusion.Cardio-oncology recommended to consider inpatient monitoring and transition to bolus dosing of 5-FU that includes pretreatment with nifedipine 60mg ER and imdur 30mg 3-4 hours before anticipated 5-FU treatment. CP now resolved on presentation to ED. - TTE 03/11/22 with normal RV and LV function with EF 60% - EKG with sinus tachycardia, no acute ischemic changes - Trend troponins if pt develops recurrence of chest pain C. difficile diarrhea 03/10/2022 Diarrhea 03/09/2022 Assessment & Plan (04/16/2022 11:05 PM CDT): Admitted 03/09-03/11 for diarrhea, dehydration, CP and found to have C diff. Treated with 10 day course of fidaxomicin with improvement in diarrhea. Presenting now with symptoms concerning for C diff recurrence; 1 day of 5-6 episodes of profusely watery stool, similar to prior C diff infection. Abdomen WNL on exam, non-tender and non-TTP. - Stool sent for C diff in ED, negative - Stool culture, O&P, Giardia/Crypto negative - restart anti-diarrheal medications (lomotil) Iron deficiency anemia 11/26/2021 Assessment & Plan (04/14/2022 6:07 AM CDT): - Hgb stable - Transfuse if hgb <7 Rectal cancer Cancer Staging:Clinical stage from 10/07/2021:Stage IIIB(cT4a, cN1, cM0) - Signed by Karyn Chan MD on 11/13/2021 Assessment & Plan (04/16/2022 11:04 PM CDT): Dx 10/16/21, RT completed 11/19 fx 11/27/21. FOLFOX initated 12/29/21. Last recevied C7 on 04/06/22. Seen in clinic on 04/12 to initiate CIVI over 46 hours with oxaliplatin. - Follows with Dr. Hung - Pt with brief episode of left sided chest pain, fever to 100.6, and chills on evening of 04/13 similar to prior episode during chemo infusion - Med Onc recommendations: continue chemotherapy at this time, give pretreatment nifedipine and imdur which was ordered. - CEA 1 on 04/06/22 - Med Onc C/S: restart 5-FU chemotherapy, will likely finish Sat PM 04/16/2022. Resolved Problems Problem Noted Date Diagnosed Date Resolved Date Neuropathy 06/29/2023 06/29/2023 Encounters Date Type Department Care Team Description 10/23/2024 1:45 PM CDT Office Visit [facility] Surgery [address] [place] [address] Medical Office Building [address] [place] [id number] Erin Shin PA Follow-up exam, 7 months to 1 year since previous exam 10/04/2024 11:45 AM CDT Office Visit [facility] Oncology [address] [place] [address] Herbert Hung MD Rectal cancer (HCC) (Primary Dx); Vitamin D deficiency 10/04/2024 11:00 AM CDT Lab [facility] [address] [place] [id number] Rectal cancer (HCC); Vitamin D deficiency; Superior mesenteric vein thrombosis 10/04/2024 9:33 AM CDT - 10/04/2024 11:59 PM CDT Hospital Encounter [facility] Radiology at [facility] [address] [place] [address] Rectal cancer (HCC) Discharge Disposition: Discharge to home or self care 10/04/2024 Orders Only [facility] Oncology [address] [facility] [address] [place] [address] Herbert Hung MD 10/01/2024 Orders Only [facility] Oncology [address] [place] [phone] Herbert Hung MD Rectal cancer (HCC) (Primary Dx); Vitamin D deficiency 09/28/2024 Orders Only [facility] Hematology [address] [facility] Floor 6 [place] [address] Ursula Moses Superior mesenteric vein thrombosis (Primary Dx) 08/31/2024 Telephone [facility] Oncology [address] [place] [phone] Lia Lee 08/29/2024 4:00 PM COLD MILL OPERATOR Office Visit [facility] Convenient Care at [address] [address] Nita Fisher NP Sore throat (Primary Dx); Acute cough 08/29/2024 3:58 PM COLD MILL OPERATOR - 08/29/2024 11:59 PM COLD MILL OPERATOR Hospital Encounter [facility] [address] [place] [address] Acute cough Discharge Disposition: Discharge to home or self care 08/29/2024 3:55 PM COLD MILL OPERATOR Ancillary Procedure [facility] Imaging at [address] [address] Sore throat 08/28/2024 Nurse Triage [facility] Primary Care [address] [facility] [address] [place] [address] Acosta Bobby CarmonaDO 08/22/2024 10:30 AM COLD MILL OPERATOR Office Visit 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 Oncology Lab [facility] [address] [place] [address] 08/21/2024 Orders Only [facility] Hematology [facility] [address] [place] [address] Ursula Moses Deep vein thrombosis (DVT) of right lower extremity, unspecified chronicity, unspecified vein (HCC) (Primary Dx) from Last 3 Months Immunizations Immunization Administration Dates Next Due Hep A, Adult 08/06/1998,08/15/1995 IPV 07/01/2004 Influenza, Quadrivalent, Petra l Culture-based MDCK, Antibiotic Free, Intramuscular 06/10/2018 Influenza, Quadrivalent, Spl it, Intramuscular 05/11/2019 Influenza, Unspecified 05/18/2022(Deferr ed: Patient Refused),04/17/2022(Deferred: Patient Refused) Influenza, Whole 05/25/2001, 1,05/12/1999,05/07 MMR 02/18/1991 Meningococcal Polysaccharide (Menomune) 03/24/2000,02/16/1994 Moderna SARS-CoV-2 Monovalen t Vaccination (12+ YRS) 10/30/2020,10/02/2020 OPV 02/18/1991 Td, adsorbed 03/21/2001,02/18/1991 Tdap 05/20/2017,12/16/2009 Tetanus Toxoid, Unspecified 12/16/2001 Typhoid H-P SQ/ID 03/24/2000 Yellow Fever 06/13/1991 ZOSTER Recombinant 01/16/2024,06/29/2023 Surgical History Surgery Date Site/Laterality Comments COLONOSCOPY 10/16/2021 SPINAL FUSION 07/18/2001 - 07/17/2002 C4-C6 PORT PLACEMENT CHEST >5 YEARS 12/01/2021 N/A ABDOMINOPERINEAL PROCTOCOLECTOMY 06/17/2022 Laparoscopic total proctocolectomy with end ileostomy PORT REMOVAL 01/27/2024 N/A Medical History Medical History Date Comments Ulcerative colitis (HCC) Sleep apnea Rectal cancer (HCC) Family History Medical History Relation Name Comments Cancer Mother Anesthesia problems Neg Hx Colon cancer Neg Hx Relation Name Status Comments Mother Social History Tobacco Use Types Packs/Day Years Used Date Smoking Tobacco: Never Passive Smoke Exposure: Never Smokeless Tobacco: Never Tobacco Cessation:Counseling Given: Not Answered [facility] Fruitfulllities Answer Date Recorded In the past 12 months has [employer] gas, oil, or water [employer] threatened to shut off services in your home? No 08/01/2023 Social Connection and Isolat ion Panel [NHANES] Answer Date Recorded In a typical week, how many times do you talk on the phone with family, friends, or neighbors? More than three times a week 08/01/2023 How often do you get togethe r with friends or relatives? More than three times a week 08/01/2023 How often do you attend chur or congregational services? Never 08/01/2023 Do you belong to any clubs o r organizations such as confucianist groups, unions, fraternal or athletic groups, or school groups? No 08/01/2023 How often do you attend meet ings of the clubs or organizations you belong to? Never 08/01/2023 Are you , , di vorced, , never , or living with a partner? 08/01/2023 AUDIT-C Answer Date Recorded Q1: How often do you have a drink containing alcohol? Never 10/23/2024 Q2: How many drinks containi ng alcohol do you have on a typical day when you are drinking? Patient does not drink Q3: How often do you have si x or more drinks on one occasion? Never 10/23/2024 Overall Financial Resource Strain (CARDIA) Answe r Date Recorded How hard is it for you to pa y for the very basics like food, housing, medical care, and heating? Not very hard 08/01/2023 PHQ-2 Answer Date Recorded PHQ-2 Total Score (If total score is 3 or more points, staff should administer the PHQ-9) 0 02/01/2023 Hunger Vital Sign Answer Date Recorded Within the past 12 months, y ou worried that your food would run out before you got the money to buy more. Never true 08/01/19 24 Within the past 12 months, t he food you bought just didn't last and you didn't have money to get more. Never true 08/01/2023 PRAPARE - Transportation Answer Date Re corded In the past 12 months, has l ack of transportation kept you from medical appointments or from getting medications? No 07/18 In the past 12 months, has l ack of transportation kept you from meetings, work, or from getting things needed for daily living? No 08/01/2023 Housing Stability Vital Sign Answer Alexandre e Recorded In the last 12 months, was t here a time when you were not able to pay the mortgage or rent on time? No 08/01/2023 In the last 12 months, how many places have you lived? 1 08/01/2023 In the last 12 months, was t here a time when you did not have a steady place to sleep or slept in a retirement (including now)? No 08/01/2023 Personal Safety Answer Date Recorded Have you ever been in or are you currently in a harmful physical or emotional relationship or is someone making you feel afraid or unsafe? Denies 01/27/2024 Sex and Gender Information Value Date Recorded Sex Assigned at Not on file Legal Sex Male 10:04 AM CDT Gender Identity Not on file Sexual Orientation Not on file Obstetrics History Last Filed Vital Signs Vital Sign Reading Time Taken Comments Blood Pressure 155/74 10/23/2024 1:11 PM CDT Pulse 86 10/23/2024 1:11 PM CDT Temperature 36.4 C (97.5 F) 10/23/2024 1:11 PM CDT Respiratory Rate 16 10/04/2024 11:3 9 AM CDT Oxygen Saturation 98% 10/23/2024 1:11 PM CDT Inhaled Oxygen Concentration - - Weight 97.9 kg (215 lb 12.8 oz) 10/23/2024 1:11 PM CDT Height 177.8 cm (5' 10 ) 10/23/2024 1:11 PM CDT Body Mass Index 30.96 10/23/2024 1:11 PM CDT Plan of Treatment Health Maintenance Due Date Last Done Comments Colon Cancer Screening-Colonoscopy 1966 Hepatitis C Screening 1966 Hepatitis B Screening 1984 Depression Screening 02/02/2024 02/01/2023, 04/28/20 Regular Well Visit/Exam 18-64 02/02/2024 02/01/2023 Covid-19 Vaccine ( season) 2024 10/30/2020, 10/02/2020 Influenza Vaccine (Season Ended) 2025 05/11/2019, 06/10/2018, 05/25/2001, Additional history exists Prostate Cancer Screening-PSA 10/24/2025 10/25/2023 DTaP/Tdap/Td Vaccine (3 - Td or Tdap) 05/20/2027 05/20/2017, 12/16/2009, 03/21/2001, Additional history exists Zoster Vaccine Completed 01/16/2024, 06/29/2023 Pneumococcal vaccine <65 Aged Out No longer eligible based on patient's age to complete this topic Medical Devices Implanted Type Area Ship Self Defense System Mk1 Operator Device Identifier Shelf Expiration Date Model / Serial / Lot Cervical Spine Fusion Instrumentation Spine Cervical Xcela Power Port 8fr [id number] - [id number] Implanted:Qty: 1 on 12/01/2021 at [facility] [employer] 09/08/2026 [id number] / / [id number] Procedures Procedure Name Priority Date/Time Associated Diagnosis Comments SURGICAL PATHOLOGY Routine 10/04/2024 10 :38 AM CDT EGFR Routine 10/04/2024 10:38 AM CDT Rectal cancer (HCC) DIFFERENTIAL AUTO Routine 10/04/2024 10: 38 AM CDT Rectal cancer (HCC) CBC WITH AUTO DIFFERENTIAL Routine 10/04/2024 10:38 AM CDT Rectal cancer (HCC) CEA Routine 10/04/2024 10:38 AM CDT Rectal cancer (HCC) ERYTHROPOIETIN Routine 10/04/2024 10:38 AM CDT Superior mesenteric vein thrombosis [facility] PROFILE Routine 10/04/2024 10:38 AM CDT Superior mesenteric vein thrombosis COMPREHENSIVE METABOLIC PANEL Routine 10/04/2024 10:38 AM CDT Rectal cancer (HCC) VITAMIN D 25 HYDROXY Routine 10/04/2024 10:38 AM CDT Rectal cancer (HCC) Vitamin D deficiency CYTOGENETICS Routine 10/04/2024 10:28 AM CDT Superior mesenteric vein thrombosis CT CHEST ABDOMEN PELVIS W CONTRAST Schedule DONN, Read DONN (Appt Today, Awaiting Results) 10/04/2024 10:16 AM CDT Rectal cancer (HCC) POCT CREATININE - DEVICE Routine 10/04/2024 9:53 AM CDT INFLUENZA A/B, RSV, AND COVID-19 PCR Routine 08/29/2024 3:58 PM COLD MILL OPERATOR Acute cough XR CHEST PA LATERAL 2 VIEWS Schedule DONN, Read DONN (Appt Today, Awaiting Results) 08/29/2024 3:56 PM COLD MILL OPERATOR Sore throat POCT RAPID STREP Routine 08/29/2024 3:47 PM COLD MILL OPERATOR Sore throat EGFR Routine 08/22/2024 10:06 AM COLD MILL OPERATOR Deep vein thrombosis (DVT) of right lower extremity, unspecified chronicity, unspecified vein (HCC) DIFFERENTIAL AUTO Routine 08/22/2024 10: 06 AM COLD MILL OPERATOR Deep vein thrombosis (DVT) of right lower extremity, unspecified chronicity, unspecified vein (HCC) CBC WITH AUTO DIFFERENTIAL Routine 08/22/2024 10:06 AM COLD MILL OPERATOR Deep vein thrombosis (DVT) of right lower extremity, unspecified chronicity, unspecified vein (HCC) COMPREHENSIVE METABOLIC PANEL Routine 08/22/2024 10:06 AM COLD MILL OPERATOR Deep vein thrombosis (DVT) of right lower extremity, unspecified chronicity, unspecified vein (HCC) PSA SCREEN Routine 10/25/2023 11:00 AM CDT History of rectal cancer Screening PSA (prostate specific antigen) from Last 3 Months or Most Recently Relevant to Health Maintenance Results * eGFR (10/04/2024 10:38 AM CDT) eGFR 80 >=60 mL/min/1. 73 m2 Comment: Interpretive Data Reference Interval Normal >/= 90 mL/min/1.73m2 Mildly decreased* 60 - 89 mL/min/1.73m2 Mildly to moderately decreased 45 - 59 mL/min/1.73m2 Moderately to severely decreased 30 - 44 mL/min/1.73m2 Severely decreased 15 - 29 mL/min/1.73m2 Kidney Failure < 15 mL/min/1.73m2 *Relative to young adult level Estimated glomerular filtration rate is determined by the 2020 CKD-EPI equation recommended by the National Kidney Foundation (A Unifying Approach to GFR Estimation: Recommendations of the NKF-ASK Task Force on Reassessing the Inclusion of Race in Diagnosing Kidney Disease, JASN 2020). The CKD-EPI equation should not be used for patients with unstable renal function and has not been validated in children and those over 70. Current interpretive data was last reviewed 2021. Blood 10/04/2024 10:3 8 AM CDT 10/04/2024 10:41 AM CDT Herbert Hung MD LAB BLOOD ORDERABLES Final Re sult [facility] [place] [address] * Differential, auto (10/04/2024 10:38 AM CDT) Neutrophil abs 6.1 1.5 - 6.5 K/cumm Comment:Testing performed by : [facility], [address] [place] [address] Imm gran abs 0.0 0.0 - 0.1 K/cumm [facility] Lymphocyte abs 1.0 0.8 - 3.3 K/cumm [facility] Monocyte abs 0.6 0.2 - 0.8 K/cumm [facility] Eosinophil abs 0.2 0.0 - 0.5 K/cumm [facility] Basophil abs 0.0 0.0 - 0.1 K/cumm [facility] Neutrophil pct 76.1 % [facility] Comment: Interpretive Data Percent cell count reference ranges are not reported, since discordance with absolute values may lead to misinterpretation of CBC data. Current Interpretive Data was last revised on 2017. Imm gran pct 0.2 % [facility] Comment: Interpretive Data Percent cell count reference ranges are not reported, since discordance with absolute values may lead to misinterpretation of CBC data. Current Interpretive Data was last revised on 2017. Lymphocyte pct 12.7 % [facility] Comment: Interpretive Data Percent cell count reference ranges are not reported, since discordance with absolute values may lead to misinterpretation of CBC data. Current Interpretive Data was last revised on 2017. Monocyte pct 7.6 % [facility] Comment: Interpretive Data Percent cell count reference ranges are not reported, since discordance with absolute values may lead to misinterpretation of CBC data. Current Interpretive Data was last revised on 2017. Eosinophil pct 2.9 % [facility] Comment: Interpretive Data Percent cell count reference ranges are not reported, since discordance with absolute values may lead to misinterpretation of CBC data. Current Interpretive Data was last revised on 2017. Basophil pct 0.5 % [facility] Comment: Interpretive Data Percent cell count reference ranges are not reported, since discordance with absolute values may lead to misinterpretation of CBC data. Current Interpretive Data was last revised on 2017. Blood 10/04/2024 10:3 8 AM CDT 10/04/2024 10:41 AM CDT Herbert Hung MD LAB BLOOD ORDERABLES Final Re sult [facility] [place] [address] * CBC with auto differential (10/04/2024 10:38 AM CDT) WBC 8.0 3.8 - 9.9 K/cumm Comment:Testing performed by : [address] [address] Hgb 14.0 13.0 - 17.5 g/dL [facility] Comment:Testing performed by : [address] [address] Hct 43.4 38.9 - 50.3 % [facility] Comment:Testing performed by : [address] [address] Plt 240 150 - 400 K/cumm [facility] Comment:Testing performed by : [address] [address] MPV 9.9 9.1 - 12.3 fL [facility] RBC 5.02 4.30 - 5.80 M/cumm [facility] MCV 86.5 81.3 - 96.4 fL [facility] MCH 27.9 27.1 - 33.3 pg [facility] MCHC 32.3 32.3 - 35.7 g/dL [facility] RDW CV 14.6 11.1 - 14.9 % [facility] RDW SD 45.8 35.7 - 48.1 fL [facility] NRBC abs 0.00 0.00 - 0.01 K/cumm [facility] Blood 10/04/2024 10:3 8 AM CDT 10/04/2024 10:41 AM CDT us Herbert Hung MD LAB BLOOD ORDERABLES Final Re sult [facility] [place] [address] * (ABNORMAL) Erythropoietin (10/04/2024 10:38 AM CDT) Pathologist [facility] Erythropoietin 22.8(H) 2.6 - 18.5 mIUnits/m L [place] ref Lab Comment: Test Performed by: [facility] [address] [place] [address] Poured Concrete Wall Technician: Susan Love Ph.D.; CLIA# [id number] Blood 10/04/2024 10:3 8 AM CDT 10/04/2024 12:19 PM CDT Ruth Marie MD LAB BLOOD ORDERABLES Rhiannon l Result Performing Organization Address City/[facility] Co de Phone Number [facility] [place] [address] [facility] * [facility] profile (10/04/2024 10:38 AM CDT) [facility] RBC-CD59 Test Completed [facility] WBC-CD59 Test Completed [facility] Test Completed [facility] Interpretation See separate Surgical Pathology report. [facility] Blood 10/04/2024 10:3 8 AM CDT 10/04/2024 1:55 PM CDT Narrative [facility] - 10/05/2024 9:25 AM CDT This test was developed and its performance characteristics determined by the [facility]. It has not been cleared or approved by the US Food and Drug Administration. This test is used for clinical purposes. It should not be regarded as investigational or for research. This laboratory is certified under the Clinical Laboratory Improvement Amendments (CLIA) as qualified to perform high complexity clinical laboratory testing. If reference ranges are not populated, there is no established reference range for that parameter for the patient s age. Ruth Marie MD LAB BLOOD ORDERABLES Rhiannon l Result Performing Organization Address [facility] de Phone Number [facility] [place] [address] * Vitamin D 25 hydroxy (10/04/2024 10:38 AM CDT) Vitamin D 25-OH 34 30 - 80 ng/mL Blood 10/04/2024 10:3 8 AM CDT 10/04/2024 12:01 PM CDT Herbert Hung MD LAB BLOOD ORDERABLES Final Re sult Performing Organization Address [facility] Phone Number [facility] [place] [address] * CEA (10/04/2024 10:38 AM CDT) Pathologist [facility] CEA 1.2 <=5.0 ng/mL Comment: Interpretive Data: Reference Range: Non-Smokers: 0.0 5.0 ng/mL Smokers: 0.0 6.5 ng/mL The [employer] CEA assay procedure was used. Results from different manufacturers or methods may not be comparable. Serial testing should be performed using the same method. Current interpretive data was last revised 2021. Blood 10/04/2024 10:3 8 AM CDT 10/04/2024 12:01 PM CDT Herbert Hung MD LAB BLOOD ORDERABLES Final Re sult Performing Organization Address [facility] [address]/[facility] [place] [address] * Comprehensive metabolic panel (10/04/2024 10:38 AM CDT) Sodium 137 135 - 145 mmol/L Comment:Testing performed by : [facility], [address] [facility] [place] [address] Potassium, pl 4.5 3.3 - 4.9 mmol/L [facility] Chloride 103 97 - 110 mmol/L [facility] CO2 28 22 - 32 mmol/L [facility] Anion gap 6 2 - 15 mmol/L [facility] BUN 11 6 - 25 mg/dL [facility] Creatinine 1.07 0.80 - 1.30 mg/dL [facility] Glucose 103 70 - 199 mg/dL [facility] Comment: Interpretive Data Fasting glucose >/= 126 mg/dl is diagnostic for diabetes. Fasting is defined as no caloric intake for at least 8 hours. Fasting glucose between 100 mg/dl to 125 mg/dl is diagnostic of prediabetes. In a patient with classic symptoms of hyperglycemia or hyperglycemic crisis, a random glucose >/= 200 mg/dl is diagnostic for diabetes. In the absence of unequivocal hyperglycemia, results should be confirmed by repeat testing. The classification and Diagnosis of Diabetes Diabetes Care 202; 46: S19-S40. Current interpretive data was last revised 2022. Calcium 9.1 8.5 - 10.3 mg/dL [facility] Bilirubin, total 0.4 0.1 - 1.2 mg/dL [facility] Protein, pl 7.1 6.5 - 8.5 g/dL [facility] Albumin 4.3 3.5 - 5.0 g/dL [facility] Alk phos 68 40 - 130 Units/L [facility] ALT 35 7 - 55 Units/L [facility] AST 31 10 - 50 Units/L [facility] Blood 10/04/2024 10:3 8 AM CDT 10/04/2024 10:41 AM CDT us Herbert Hung MD LAB BLOOD ORDERABLES Final Re sult [facility] [place] [address] * Surgical pathology (10/04/2024 10:38 AM CDT) Peripheral Blood For Pathologist Review 10/04/2024 10:38 AM CDT 10/04/2024 1:56 PM CDT Narrative 10/05/2024 11:15 AM CDT EPIC results best viewed via link to PDF [facility] [place] [address] Note to Patients: This report may contain a detailed description of human tissue sent by a health care provider to the laboratory for pathologic evaluation. The content of this report is essential for diagnosis and may provide important critical findings. This information may be unfamiliar to patients to review without a medical professional present. It is advised that the patient review this report in the presence of a health care provider who can answer questions and explain the details. SURGICAL PATHOLOGY REPORT FINAL Patient Name: MATTHEW MONTEMAYOR Gender: M : 1965 (Age: 59) Address: [address] [place] [address] Hospital #: [id number] Taken:10/04/2024 Received:10/04/2024 Reported: 10/05/2024 Patient Type: [facility] Service: Laboratory Location: Physician(s): Herbert Hung M.D. Diagnosis: Peripheral blood for flow cytometry: - No immunophenotypic evidence of Paroxysmal nocturnal hemoglobinuria [facility]/10/05/2024 10:37 By this signature, I attest that the above diagnosis is based upon my personal examination of the slides(and/or other material indicated in the diagnosis). Humberto Ernst M.D. Report Electronically Reviewed and Signed Out By Humberto Ernst M.D. 10/05/2024 11:15:47 Microscopic Description and Comment: Flow cytometry performed on the peripheral blood shows retained expression of CD59 in red blood cells and granulocytes. Furthermore, granulocytes demonstrate retained FLAER binding. Flow cytometry was performed using antibodies to the following cellular antigens: CD45, LR561p, CD15, CD59, FLAER. 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 Specimen(s) Received: A: Peripheral blood for flow cytometry Gross Description: { Not Entered } Gross Pathologist: No pathologist assigned By this signature, I attest that the above diagnosis is based upon my personal examination of the slides(and/or other material). Addenda/Procedures The performance characteristics of some immunohistochemical stains, fluorescence in-situ hybridization tests and immunophenotyping by flow cytometry cited in this report (if any) were determined by the Surgical Pathology and Flow Cytometry Departments at [facility] as part of an ongoing quality improvement coordinator program and in compliance with federally mandated regulations drawn from the Clinical Laboratory Improvement Act of 1988 (CLIA '88). Some of these tests rely on the use of analyte specific reagents and are subject to specific labeling requirements by the US Food and Drug Administration. Such diagnostic tests may only be performed in a facility that is certified by the Department of Health and Human Services as a high complexity laboratory under CLIA '88. The FDA has determined that such clearance or approval is not necessary. This test is used for clinical purposes. It should not be regarded as investigational or for research. Nevertheless, federal rules concerning the medical use of analyte specific reagents require that the following disclaimer be attached to the report: This test was developed and its performance characteristics determined by the Surgical Pathology and Flow Cytometry Departments of [facility]. It has not been cleared or approved by the U. S. Food and Drug Administration. IMAGES AND SCANNED DOCUMENTS, IF INCLUDED, ONLY VIEWABLE IN PDF VERSION OF REPORT us Herbert Hung MD LAB PATHOLOGY ORDERABLES Rhiannon l Result * Cytogenetics Blood (10/04/2024 10:28 AM CDT) Blood (Peripheral Blood For Pathologist Review) 10/04/2024 10:28 AM CDT 10/04/2024 10:28 AM CDT [facility] DIAGNOSTIC LAB - CYTOGENETICS - 10/11/2024 10:01 PM CDT EPIC results best viewed via link to PDF [facility] Department of Pathol [address] [place] [id number] Patient Information Name: MATTHEW MONTEMAYOR Gender: M : 1965 (Age: 59) Tissue: Leukemic Blood Visit Information Hospital #: [id number] Facility: [facility] Service: [facility] Location: [facility] Patient Type: [facility] Specimen Information: Culture #: [id number] Date Collected: 10/04/2024 Date Accessioned: 10/05/2024 Date Ordered: 10/04/2024 Physician(s): Ruth Marie M.D. Processing: N/A Indication: Superior mesenteric vein thrombosis Specimen Quality: Low cell count Study Cancelled: Per clinician CLINICAL REPORT CHROMOSOME ANALYSIS Karyotype: Diagnosis: STUDY CANCELLED INTERPRETATION: This study was cancelled at the request of CARLEY Wallis and CARLEY Moses. Chromosome analysis and Fluorescence In Situ Hybridization (FISH) analysis are performed using the [employer] Imaging System. Report Electronically Reviewed and Signed Out By Candida Valera MD, [facility], FAAPDate Reported: 10/11/2024Professor, Division of Genomic & Molecular Pathology us Ruth Marie MD LAB GENETIC TESTING Final Result [facility] DIAGNOSTIC LAB - CYTOGENETICS [address] [place] [address] * CT chest abdomen pelvis with contrast (10/04/2024 10:16 AM CDT) Anatomical Region Laterality Modality Body N/A Computed Tomogra phy 10/04/2024 10:4 8 AM CDT Impressions 10/04/2024 1:33 PM CDT 1. No evidence of progressive disease in the chest, abdomen, or pelvis. 2. Interval decrease in now small nonocclusive superior mesenteric vein thrombus. No evidence of bowel ischemia. 3. Changes of abdominoperineal resection and total colectomy with unchanged moderate sized parastomal hernia and small volume presacral fluid. Dictated by: René Zhou MD The radiology attending physician has personally reviewed this study, and had reviewed and/or edited this written report and agrees with it. Electronically signed by: Craig Ivey M.D. Narrative 10/04/2024 1:33 PM CDT EXAMINATION: CT CHEST ABDOMEN PELVIS W CONTRAST HISTORY: Rectal cancer restaging TECHNIQUE: Transaxial computed tomographic images of the chest, abdomen and pelvis were obtained with intravenous contrast according to the standard protocol after the uneventful administration of 69 mL Opti-Ray 350 intravenous contrast. COMPARISON: 07/24/2024 FINDINGS: Thyroid gland is normal. Mild gynecomastia. Heart size is normal without pericardial effusion. Minimal coronary artery and thoracic aortic calcifications. Normal caliber thoracic aorta and main pulmonary artery. No thoracic lymphadenopathy. Central airways are normal in caliber. Scattered calcified pulmonary granuloma. No suspicious pulmonary nodule. No focal consolidation, pleural effusion, or pneumothorax. Subsegmental bibasilar atelectasis. No suspicious focal liver lesion. No biliary ductal dilation. Portal veins are patent. Interval decrease in burden of thrombus in the superior mesenteric vein, now with small residuals thrombus seen at series 2 image 183). Spleen, adrenal glands, and pancreas are normal. Left renal cyst and an additional too small to characterize hypoattenuating right renal lesion are similar to prior. No hydronephrosis or nephrolithiasis. Unchanged appearance of the urinary bladder which is nondistended. Prostate gland is present. Minimal atherosclerotic calcifications of the abdominal aorta which is nonaneurysmal. No abdominal or pelvic lymphadenopathy. Changes of total colectomy, abdominoperineal resection, and right lower quadrant ileostomy. Unchanged moderate sized parastomal hernia containing nonobstructed small bowel. Similar small volume presacral fluid. Small bowel is normal in caliber without evidence of obstruction or abnormal wall thickening. No evidence of bowel ischemia. No peritoneal or omental nodularity. Partially imaged cervical spine instrumentation. No suspicious osseous lesions. Procedure Note Craig Ivey MD - 10/04/2024 EXAMINATION: CT CHEST ABDOMEN PELVIS W CONTRAST HISTORY: Rectal cancer restaging TECHNIQUE: Transaxial computed tomographic images of the chest, abdomen and pelvis were obtained with intravenous contrast according to the standard protocol after the uneventful administration of 69 mL Opti-Ray 350 intravenous contrast. COMPARISON: 07/24/2024 FINDINGS: Thyroid gland is normal. Mild gynecomastia. Heart size is normal without pericardial effusion. Minimal coronary artery and thoracic aortic calcifications. Normal caliber thoracic aorta and main pulmonary artery. No thoracic lymphadenopathy. Central airways are normal in caliber. Scattered calcified pulmonary granuloma. No suspicious pulmonary nodule. No focal consolidation, pleural effusion, or pneumothorax. Subsegmental bibasilar atelectasis. No suspicious focal liver lesion. No biliary ductal dilation. Portal veins are patent. Interval decrease in burden of thrombus in the superior mesenteric vein, now with small residuals thrombus seen at series 2 image 183). Spleen, adrenal glands, and pancreas are normal. Left renal cyst and an additional too small to characterize hypoattenuating right renal lesion are similar to prior. No hydronephrosis or nephrolithiasis. Unchanged appearance of the urinary bladder which is nondistended. Prostate gland is present. Minimal atherosclerotic calcifications of the abdominal aorta which is nonaneurysmal. No abdominal or pelvic lymphadenopathy. Changes of total colectomy, abdominoperineal resection, and right lower quadrant ileostomy. Unchanged moderate sized parastomal hernia containing nonobstructed small bowel. Similar small volume presacral fluid. Small bowel is normal in caliber without evidence of obstruction or abnormal wall thickening. No evidence of bowel ischemia. No peritoneal or omental nodularity. Partially imaged cervical spine instrumentation. No suspicious osseous lesions. IMPRESSION: 1. No evidence of progressive disease in the chest, abdomen, or pelvis. 2. Interval decrease in now small nonocclusive superior mesenteric vein thrombus. No evidence of bowel ischemia. 3. Changes of abdominoperineal resection and total colectomy with unchanged moderate sized parastomal hernia and small volume presacral fluid. Dictated by: René Zhou MD The radiology attending physician has personally reviewed this study, and had reviewed and/or edited this written report and agrees with it. Electronically signed by: Craig Ivey M.D. Herbert Hung MD IMG CT PROCEDURES Final Resul t * POCT creatinine (10/04/2024 9:53 AM CDT) Creatinine POC 1.1 0.8 - 1.3 mg/dL Blood 10/04/2024 9:53 AM CDT 10/04/2024 9:53 AM CDT Herbert Hung MD LAB POCT ORDERABLES - DEVICE Final Result Performing Organization Address City/[facility] [address]/ZIP Co de Phone Number MELANIE DEWITT [facility] [place] [address] * Influenza A/B, RSV, and COVID-19 PCR Nasopharyngeal (08/29/2024 3:58 PM COLD MILL OPERATOR) COVID-19 RNA Negative Negative Influenza A RNA Negative Negative [facility] Influenza B RNA Negative Negative [facility] RSV RNA Negative Negative [facility] Comment: Interpretive data: Testing performed by [facility]. This test is performed using the [employer] Xpert Xpress CoV-2/Flu/RSV plus assay. This is a multiplex, real-time reverse transcriptase PCR assay intended for the qualitative detection of nucleic acid from SARS-CoV-2, influenza A, influenza B, and respiratory syncytial virus. This assay has been cleared by the [place] Food and Drug administration. The performance characteristics have been verified by the [facility]. Results must be considered in the clinical context, and a negative result does not rule out infection. Interpretive Data last revised 2023 Nasopharyngeal 08/29/2024 3: 58 PM COLD MILL OPERATOR 08/29/2024 6:06 PM COLD MILL OPERATOR Narrative [facility] - 08/29/2024 8:34 PM COLD MILL OPERATOR Is the Patient experiencing symptoms consistent with COVID?->Yes Reason for testing?->Symptomatic Is the patient experiencing any symptoms consistent with COVID (eg. Fever, cough, shortness of breath)?->Yes Nita Fisher NP LAB MICROBIOLOGY - GENERAL ORDERABLES Final Result Performing Organization Address [facility] [address]/ZIP Co de Phone Number MELANIE [address] [address] [place] [address] CH * XR Chest Pa Lateral 2 Views (08/29/2024 3:56 PM COLD MILL OPERATOR) Anatomical Region Laterality Modality Body, Chest N/A Digital Radiogra phy 08/29/2024 4:13 PM COLD MILL OPERATOR Narrative 08/29/2024 4:13 PM COLD MILL OPERATOR EXAM DESCRIPTION: XR CHEST PA LATERAL 2 VIEWS REASON FOR STUDY: cough Chest tightness for one week. No surgery to heart, lungs, or chest. Colon cancer history. Non-smoker. TECHNIQUE: 2 radiographic view(s) of the chest. COMPARISON: Chest radiograph 04/14/2022 FINDINGS: The cardiomediastinal silhouette appears normal. There is no airspace consolidation or pleural effusion. There is curvilinear band of atelectasis or scarring at the left lung base. Right chest wall port has been removed. IMPRESSION: No acute findings. THIS IS AN ELECTRONICALLY VERIFIED FINAL REPORT 08/29/2024 4:13 PM - Electronically signed by Joey Fritz M.D., JR T: Report ID: [id number] Reading Location: [id number] Procedure Note Joey Fritz MD - 08/29/2024 EXAM DESCRIPTION: XR CHEST PA LATERAL 2 VIEWS REASON FOR STUDY: cough Chest tightness for one week. No surgery to heart, lungs, or chest. Colon cancer history. Non-smoker. TECHNIQUE: 2 radiographic view(s) of the chest. COMPARISON: Chest radiograph 04/14/2022 FINDINGS: The cardiomediastinal silhouette appears normal. There is no airspace consolidation or pleural effusion. There is curvilinear band of atelectasis or scarring at the left lung base. Right chest wall port has been removed. IMPRESSION: No acute findings. THIS IS AN ELECTRONICALLY VERIFIED FINAL REPORT 08/29/2024 4:13 PM - Electronically signed by Joey Fritz M.D., JR T: Report ID: [id number] Reading Location: [id number] Nita Fisher NP IMG XR PROCEDURES Final Re sult * POCT rapid strep A (08/29/2024 3:47 PM COLD MILL OPERATOR) Rapid Strep A, POC Negative Negative Swab 08/29/2024 3:47 PM COLD MILL OPERATOR Nita Fisher NP POINT OF CARE TEST ORDERAB LES Final Result * eGFR (08/22/2024 10:06 AM COLD MILL OPERATOR) Pathologist [facility] eGFR 83 >=60 mL/min/1. 73 m2 Comment: Interpretive Data Reference Interval Normal >/= 90 mL/min/1.73m2 Mildly decreased* 60 - 89 mL/min/1.73m2 Mildly to moderately decreased 45 - 59 mL/min/1.73m2 Moderately to severely decreased 30 - 44 mL/min/1.73m2 Severely decreased 15 - 29 mL/min/1.73m2 Kidney Failure < 15 mL/min/1.73m2 *Relative to young adult level Estimated glomerular filtration rate is determined by the 2020 CKD-EPI equation recommended by the National Kidney Foundation (A Unifying Approach to GFR Estimation: Recommendations of the NKF-ASK Task Force on Reassessing the Inclusion of Race in Diagnosing Kidney Disease, JASN 2020). The CKD-EPI equation should not be used for patients with unstable renal function and has not been validated in children and those over 70. Current interpretive data was last reviewed 2021. Blood 08/22/2024 10:0 6 AM COLD MILL OPERATOR 08/22/2024 10:30 AM COLD MILL OPERATOR us Ruth Marie MD LAB BLOOD ORDERABLES Rhiannon l Result [facility] Department of Laboratories [place], [place] [id number] * Differential, auto (08/22/2024 10:06 AM COLD MILL OPERATOR) Pathologist [facility] Neutrophil abs 5.7 1.5 - 6.5 K/cumm Comment:Testing performed by : [facility], [facility] [place] [address] Lymphocyte abs 1.3 0.8 - 3.3 K/cumm MELANIE [facility] Comment:Testing performed by : [facility], [facility] [place] [address] Monocyte abs 0.6 0.2 - 0.8 K/cumm MELANIE [facility] Comment:Testing performed by : [facility], [address] [place] [phone] Eosinophil abs 0.2 0.0 - 0.5 K/cumm [facility] Comment:Testing performed by : [facility], [address] [place] [phone] Basophil abs 0.1 0.0 - 0.1 K/cumm [facility] Comment:Testing performed by : [facility], [address] [place] [phone] Neutrophil pct 73.4 % [facility] Comment: Interpretive Data Percent cell count reference ranges are not reported, since discordance with absolute values may lead to misinterpretation of CBC data. Current Interpretive Data was last revised on 2017. Testing performed by: [facility], [address] [place] [phone] Lymphocyte pct 16.2 % [facility] Comment: Interpretive Data Percent cell count reference ranges are not reported, since discordance with absolute values may lead to misinterpretation of CBC data. Current Interpretive Data was last revised on 2017. Testing performed by: [facility], [address] [place] [phone] Monocyte pct 7.1 % [facility] Comment: Interpretive Data Percent cell count reference ranges are not reported, since discordance with absolute values may lead to misinterpretation of CBC data. Current Interpretive Data was last revised on 2017. Testing performed by: [facility], [address] [place] [phone] Eosinophil pct 2.3 % [facility] Comment: Interpretive Data Percent cell count reference ranges are not reported, since discordance with absolute values may lead to misinterpretation of CBC data. Current Interpretive Data was last revised on 2017. Testing performed by: [facility], [address] [place] [phone] Basophil pct 1.0 % [facility] Comment: Interpretive Data Percent cell count reference ranges are not reported, since discordance with absolute values may lead to misinterpretation of CBC data. Current Interpretive Data was last revised on 2017. Testing performed by: [facility], [address] [place] [address] Blood 08/22/2024 10:0 6 AM COLD MILL OPERATOR 08/22/2024 10:26 AM COLD MILL OPERATOR us Ruth Marie MD LAB BLOOD ORDERABLES Rhiannon l Result [facility] [place] [address] * CBC with auto differential (08/22/2024 10:06 AM COLD MILL OPERATOR) WBC 7.7 3.8 - 9.9 K/cumm Comment:Testing performed by : [facility], [address] [place] [address] Hgb 13.3 13.0 - 17.5 g/dL MELANIE DEWITT Comment:Testing performed by : [facility], [address] [place] [address] Hct 41.0 38.9 - 50.3 % [facility] Comment:Testing performed by : [facility], [address] [place] [address] Plt 234 150 - 400 K/cumm MELANIE DEWITT Comment:Testing performed by : [facility], [address] [place] [address] MPV 8.3 6.8 - 10.4 fL MELANIE [facility] Comment:Testing performed by : [facility], [address] [place] [address] RBC 4.75 4.30 - 5.80 M/cumm [facility] Comment:Testing performed by : [facility], [address] [place] [address] MCV 86.3 81.3 - 96.4 fL MELANIE DEWITT Comment:Testing performed by : [facility], [address] [place] [address] MCH 28.1 27.1 - 33.3 pg CERSEBASTIAN DEWITT Comment:Testing performed by : [facility], [address] [place] [phone] MCHC 32.6 32.3 - 35.7 g/dL [facility] Comment:Testing performed by : [facility], [address] [place] [phone] RDW CV 13.8 11.1 - 14.9 % [facility] Comment:Testing performed by : [facility], [address] [place] [phone] NRBC abs 0.00 0.00 - 0.01 K/cumm [facility] CENTER Comment:Testing performed by : [facility], [address] [place] [id number] Blood 08/22/2024 10:0 6 AM COLD MILL OPERATOR 08/22/2024 10:26 AM COLD MILL OPERATOR us Ruth Marie MD LAB BLOOD ORDERABLES Rhiannon cordova Result [facility] [place] [address] * Comprehensive metabolic panel (08/22/2024 10:06 AM COLD MILL OPERATOR) Sodium 141 135 - 145 mmol/L Potassium, pl 4.1 3.3 - 4.9 mmol/L [facility] Chloride 107 97 - 110 mmol/L [facility] CO2 27 22 - 32 mmol/L [facility] Anion gap 7 2 - 15 mmol/L [facility] BUN 10 6 - 25 mg/dL [facility] Creatinine 1.04 0.80 - 1.30 mg/dL [facility] Glucose 111 70 - 199 mg/dL [facility] Comment: Interpretive Data Fasting glucose >/= 126 mg/dl is diagnostic for diabetes. Fasting is defined as no caloric intake for at least 8 hours. Fasting glucose between 100 mg/dl to 125 mg/dl is diagnostic of prediabetes. In a patient with classic symptoms of hyperglycemia or hyperglycemic crisis, a random glucose >/= 200 mg/dl is diagnostic for diabetes. In the absence of unequivocal hyperglycemia, results should be confirmed by repeat testing. The classification and Diagnosis of Diabetes Diabetes Care 2021; 46: S19-S40. Current interpretive data was last revised 2022. Calcium 9.4 8.5 - 10.3 mg/dL [facility] Bilirubin, total 0.3 0.1 - 1.2 mg/dL [facility] Protein, pl 7.1 6.5 - 8.5 g/dL [facility] Albumin 4.0 3.5 - 5.0 g/dL [facility] Alk phos 84 40 - 130 Units/L [facility] ALT 19 7 - 55 Units/L [facility] AST 23 10 - 50 Units/L [facility] Blood 08/22/2024 10:0 6 AM COLD MILL OPERATOR 08/22/2024 10:30 AM COLD MILL OPERATOR Ruth Marie MD LAB BLOOD ORDERABLES Rhiannon l Result Performing Organization Address [facility] de Phone Number [facility] [place] [address] * PSA screen (10/25/2023 11:00 AM CDT) PSA-Total 0.45 <=3.90 ng/mL Comment: Interpretive Data AGE SEX REFERENCE INTERVAL 0 minutes-150 years Female None 0 minutes-49 years Male None 50-59 years Male 0-3.90 60-69 years Male 0-5.40 70-79 years Male 0-6.20 80-150 years Male 0-6.20 The File[employer] PSA Total assay procedure was used. Results from different manufacturers or methods may not be comparable. Serial testing should be performed using the same method. Current interpretive data last revised 21. Blood 10/25/2023 11:0 0 AM CDT 10/25/2023 12:55 PM CDT us Bobby Acosta DO LAB BLOOD ORDERABLES Fin al Result Performing Organization Address [facility] [address] [facility] Co de Phone Number [facility] [employer] [place] [address] from Last 3 Months or Most Recently Relevant to Health Maintenance Insurance [facility] FED[employer]AL GENERIC COPAY ASSIST [facility] FEDERAL BCBS FEDERAL Advance Directives For more information, please contact: [phone] * Full Code (Latest Code Status on File) Date Activated Date Inactivated Comments 07/31/2023 5:13 AM 08/01/2023 7:48 PM * Full Code Date Activated Date Inactivated Comments 06/17/2022 8:59 PM 06/23/2022 3:31 PM * Full Code Date Activated Date Inactivated Comments 06/14/2022 2:49 PM 06/14/2022 9:01 PM * Full Code Date Activated Date Inactivated Comments 05/03/2022 9:36 AM 05/06/2022 2:43 PM * Full Code Date Activated Date Inactivated Comments 04/14/2022 1:46 PM 04/17/2022 10:20 PM Care Teams Tape Weaver Relationship Specialty Start Date End Date Bobby Acosta DO [address] [facility] [address] [place] [address] PCP - General Family Medicine 02/01/23 Victor M Hernández MD [phone] [place] [address] Surgeon Colon and Rectal Surgery 10/27/21 Luis Felipe Branham MD [address] [place] [address] Order Detailer Gastroenterology 10/27/21 Herbert Hung MD [address] [place] [address] Medical Oncologist Medical Oncology 11/10/21
--- OUTSIDE RECORDS SUMMARY | 2024-10-31 16:55 | XMS_ITS | Encounter Summary ---
Author Organization [facility] Address [address] [place] [address] Phone Care Team Providers Care Service Operations Manager Name Role Phone Noelle Sullivan MD Primary Care Provider [phone] Victor M Hernández MD Unavailable Luis Felipe Branham MD Unavailable [phone] Herbert Hung MD Unavailable [phone] Bobby Acosta DO Primary Care Provider + Encounter Details Date Type Department Care Team (Latest Contact Info) Description 09/30/2022 Orders Only [facility] Scanning, Provider [...] Date/Time Associated Diagnosis Comments SCAN - RADIOLOGY/IMAGING 09/30/2022 documented in this encounter Results * SCAN - RADIOLOGY/IMAGING (09/30/2022) Anatomical Region Laterality Modality Other Provider Scanning Final Result documented in this encounter Visit Diagnoses Not on filedocumented in this encounter Additional Health Concerns Infection Onset Date Last Indicated Resolved Time COVID: Suspected 08/29/2024 08/29/2024 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 as of this encounter Care Teams Service Operations Manager Relationship Specialty Start Date End Date Noelle Sullivan MD PCP - General Family Medicine 10/22/21 01/31/23 Bobby Acosta DO [address] [facility] [address] [place] [address] PCP - General Family Medicine 02/01/23 Victor M Hernández MD [phone] [place] [address] Surgeon Colon and Rectal Surgery 10/27/21 Luis Felipe Branham MD [address] [place] [address] Correspondence School Instructor Gastroenterology 10/27/21 Herbert Hung MD [address] [facility] [address] [place] [address] Medical Oncologist Medical Oncology 11/10/21 documented as of this encounter
--- OUTSIDE RECORDS SUMMARY | 2024-10-31 16:55 | XMS_ITS | Encounter Summary ---
Author Organization [facility] Address [address] [place] [address] Phone Care Team Providers Care Manager Investment Name Role Phone Noelle Sullivan MD Primary Care Provider [phone] Victor M Hernández MD Unavailable [phone] Luis Felipe Branham MD Unavailable [phone] Herbert Hung MD Unavailable [phone] Bobby Acosta DO Primary Care Provider [...] Priority Date/Time Associated Diagnosis Comments SCAN - LABS 09/29/2022 documented in this encounter Results * SCAN - LABS (09/29/2022) us Provider Scanning Edited Result - Final documented in this encounter Visit Diagnoses Not on filedocumented in this encounter Additional Health Concerns Infection Onset Date Last Indicated Resolved Time COVID: Suspected 08/29/2024 08/29/2024 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/2024 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 [address] [place] [address] Medical Oncologist Medical Oncology 11/10/21 documented as of this encounter
--- OUTSIDE RECORDS SUMMARY | 2024-10-31 16:55 | XMS_ITS | Clinical Summary ---
Author Organization [facility] Address [address] [place] [address] Care Team Providers Care Turning Sander Operator Name Role Phone Noelle Sullivan MD Primary Care Provider [phone] Allergies No known active allergies Medications mesalamine 1.2 g Tab EC TK 4 TS PO D 12 8 Active budesonide 3 MG 24 hr capsule Take 6 mg by mouth every morning. Active tamsulosin (FLOMAX) 0.4 MG Cap Take 1 capsule (0.4 mg total) by mouth daily. 30 capsule 8 Active hydrocodone-acetami nophen 5-325 MG tablet Take 1 tablet by mouth every 6 (six) hours as needed. 20 tablet 8 Active ondansetron 4 MG disintegrating tablet Take 1 tablet (4 mg total) by mouth every 8 (eight) hours as needed for Nausea. 20 tablet 8 Active Social History Tobacco Use Types Packs/Day Years Used Date Smoking Tobacco: Never Smokeless Tobacco: Never Alcohol Use Standard Drinks/Week Comments No 0 (1 standard drink = 0.6 oz pur e alcohol) AUDIT-C Answer Date Recorded Frequency of Alcohol Consumption Never 04/25/2018 Average Number of Drinks Not on file 018 Frequency of Binge Drinking Not on file 03/2018 Sex and Gender Information Value Date Recorded Sex Assigned at Not on file Legal Sex Male 7:39 PM CDT Gender Identity Not on file Sexual Orientation Not on file Last Filed Vital Signs Vital Sign Reading Time Taken Comments Blood Pressure 123/84 04/25/2018 12:55 PM CDT Pulse 62 04/25/2018 12:55 PM CDT Temperature 36.3 C (97.3 F) 04/25/2018 12:55 PM CDT Respiratory Rate 16 04/25/2018 12:55 PM CDT Oxygen Saturation 97% 04/25/2018 12:55 PM CDT Inhaled Oxygen Concentration - - Weight 93 kg (205 lb) 04/25/2018 12:55 PM CDT Height 177.8 cm (5' 10 ) 04/25/2018 12:55 PM CDT Body Mass Index 29.41 04/25/2018 12:55 PM CDT Plan of Treatment Health Maintenance Due Date Last Done Comments Colorectal Cancer Screening Colonoscopy (10 Years) 1966 Annual Physical 1969 Hepatitis C 1984 DTaP, Tdap and Td Vaccines ( 1 - Tdap) 1985 Hepatitis B Vaccines (1 of 3 - 19+ 3-dose series) 1985 Zoster Vaccines (1 of 2) 2016 COVID-19 Vaccine ( - 2023-2 5 season) 2024 Meningococcal B Vaccine Aged Out No l onger eligible based on patient's age to complete this topic Meningococcal Vaccine Aged Out No kirstie sonia eligible based on patient's age to complete this topic Pneumococcal Vaccine: Pediat rics (0 to 5 Years) and At-Risk Patients (6 to 49 Years) Aged Out No longer eligible b ased on patient's age to complete this topic RSV Immunizations Under 20 Months Aged Out No longer eligible based on patient's age to complete this topic Insurance Care Teams Turning Sander Operator Relationship Specialty Start Date End Date Noelle Sullivan MD PCP - General FAMILY PRACTICE 04/25/18
--- OUTSIDE RECORDS SUMMARY | 2024-10-31 16:55 | XMS_ITS ---
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 Denied need for supplies. [facility] Assessment & Plan (11/17/2023 2:50 PM CDT): Due to continued symptoms, the patient will continue CPAP at 5-20 cm water pressure. Denied need for supplies. [facility] Assessment & Plan (07/29/2023 11:22 AM CONSTRUCTION JOB TITLES): The patient was diagnosed with obstructive sleep [...] 11:04 PM CDT): Dx 10/16/21, RT completed /5 fx 11/27/21. FOLFOX initated 12/29/21. Last recevied [...] chemotherapy, will likely finish Sat PM 04/16/2022. Current Treatment and Therapy Plans IV MAINTENANCE THERAPY PLAN* Plan Start Date:12/22/2021 Plan Provider:Herbert Hung MD Linked Problems Rectal cancer (HCC) Treatment Medications No medications scheduled. Past Treatment and Therapy Plans Oncology Chemotherapy Treatment Plan Name Start Date Discontinue Date Treatment Medications Discontinue Reason Plan Provider Cycles [id number]: (Fluorouracil / Leucovorin / Oxaliplatin) 14 Day Cycles - GI 12/22/2021 10/26/2022 fluorouracil (ADRUCIL)fluorou racil (ADRUCIL) infusion - for home infusion (ADRUCIL)fluorou racil (ADRUCIL) IVPB in 1,000 mL (ADRUCIL)leucovo rinleucovorin IVPB in 250 mLoxaliplatin (ELOXATIN)oxalip latin (ELOXATIN) IVPB Therapy Complete Herbert Hung MD 8 of 12 cycles started Oncology Supportive Care Plan Name Start Date Discontinue Date Treatment Medications Discontinue Reason Plan Provider HYDRATION THERAPY PLAN 03/09/2022 10/26/2022 No medications scheduled. Therapy Complete Herbert Hung MD Oncology Treatment (2) Plan Name Start Date Discontinue Date Treatment Medications Discontinue Reason Plan Provider Cycles FLOX: (Fluorouracil / Leucovorin / Oxaliplatin) 56 Day Cycles - Colon 3 01/24/2023 fluorouracil (ADRUCIL)leucov orinoxaliplatin (ELOXATIN) No Evidence of Disease Herbert Hung MD Treatment not started Radiation Treatments * Course [id number]/[id number]/2021 - 11/27/2021 Treatment Period Energy Fraction Dose Fractions Total Dose Plans Planned RECTUM 11/23/2021 - 11/27/2021 500 5 / 2,500 Reference Points Delivered RECTUM_DPV 11/23/2021 - 11/27/2021 2,500 Lifetime Dose Tracking * Chemical Lifetime Dose Automatic Entry Manual Entr y Fluoro Time 0.2 minutes 0.2 minutes 0 minutes Air kerma at the reference point (Ka,r) 1 mGy 1 mGy 0 mGy DLP 9,440 mGycm 9,440 mGycm 0 mGycm Resolved Problems Problem Noted Date Diagnosed Date Resolved Date Neuropathy 06/29/2023 06/29/2023
--- OUTSIDE RECORDS SUMMARY | 2024-10-31 16:55 | XMS_ITS | Referral Summary ---
Author Organization [facility] Address [address] [place] [address] Care Team Providers Care Gasoline Finisher Name Role Phone Victor M Hernández MD Unavailable [phone] Luis Felipe Branham MD Unavailable [phone] Herbert Hung MD Unavailable [phone] Bobby Acosta DO Primary Care Provider + Encounters Date Type Department Care Team Description 10/23/2024 1:45 PM CDT Office Visit [facility] Surgery [address] [place] [address] Medical Office Building [address] [place] [address] Erin Shin PA Follow-up exam, 7 months to 1 year since previous exam 10/04/2024 Orders Only [facility] Oncology [address] [facility] [address] [place] [phone] Herbert Hung MD 10/04/2024 11:45 AM CDT Office Visit [facility] Oncology [address] [place] [phone] Herbert Hung MD Rectal cancer (HCC) (Primary Dx); Vitamin D deficiency 10/04/2024 11:00 AM CDT Lab [address] [address] Rectal cancer (HCC); Vitamin D deficiency; Superior mesenteric vein thrombosis 10/04/2024 9:33 AM CDT - 10/04/2024 11:59 PM CDT Hospital Encounter [facility] Radiology at [facility] [address] [place] [address] Rectal cancer (HCC) Discharge Disposition: Discharge to home or self care 10/01/2024 Orders Only [facility] Oncology [address] [place] [address] Herbert Hung MD Rectal cancer (HCC) (Primary Dx); Vitamin D deficiency 09/28/2024 Orders Only [facility] Hematology [facility] [address] [place] [phone] Ursula Moses Superior mesenteric vein thrombosis (Primary Dx) 08/31/2024 Telephone [facility] Oncology [address] [place] [phone] Lia Lee 08/29/2024 3:58 PM BELLMAN - 08/29/2024 11:59 PM BELLMAN Hospital Encounter [address] [address] Acute cough Discharge Disposition: Discharge to home or self care 08/29/2024 3:55 PM BELLMAN Ancillary Procedure [facility] Imaging at [address] [address] Sore throat 08/29/2024 4:00 PM BELLMAN Office Visit [facility] Convenient Care at [address] [address] Nita Fisher NP Sore throat (Primary Dx); Acute cough 08/28/2024 Nurse Triage [facility] Primary Care [address] [place] [address] [place] [phone] Bobby Acosta DO 08/22/2024 10:15 AM BELLMAN Lab [facility] - Lab Collection [address] [place] [address] Floor [address] [place] [address] Deep vein thrombosis (DVT) of right lower extremity, unspecified chronicity, unspecified vein (HCC); Rectal cancer (HCC) 08/22/2024 10:30 AM BELLMAN Office Visit [facility] Hematology [address] [place] [address] [address] [place] [address] Saif Ruth Carrillo MD Superior mesenteric vein thrombosis (Primary Dx); Rectal cancer (HCC); Ulcerative pancolitis with other complication (HCC); Chronic deep vein thrombosis (DVT) of right peroneal vein (HCC) 08/22/2024 10:00 AM BELLMAN Lab [facility] Oncology Lab [facility] Floor [address] [place] [address] 08/21/2024 Orders Only [facility] Hematology [facility] [address] [place] [address] Ursula Moses Deep vein thrombosis (DVT) of right lower extremity, unspecified chronicity, unspecified vein (HCC) (Primary Dx) from Last 3 Months Allergies No known active allergies Medications ostomy [...] 07/29/2023 Assessment & Plan (05/31/2024 3:50 PM BELLMAN): Due to continued symptoms, the patient will continue with auto titrating CPAP set at 5-20 cm water pressure. Denied need for supplies. [facility] Assessment & Plan (11/17/2023 2:50 PM CDT): Due to continued symptoms, the patient will continue CPAP at 5-20 cm water pressure. Denied need for supplies. [facility] Assessment & Plan (07/29/2023 11:22 AM BELLMAN): The patient was diagnosed with obstructive sleep [...] Diagnosed Date Resolved Date Neuropathy 06/29/2023 06/29/2023 Immunizations Immunization Administration Dates Next Due Hep [...] 03/24/2000 Yellow Fever 06/13/1991 ZOSTER Recombinant 01/16/2024,06/29/2023 Social History Tobacco Use Types Packs/Day Years Used Date Smoking Tobacco: Never Passive Smoke Exposure: Never Smokeless Tobacco: Never Tobacco Cessation:Counseling Given: Not Answered [facility] Utilities Answer Date Recorded In the past 12 months has [employer], gas, oil, or water company threatened to shut off services in your [...] 08/01/2023 How often do you attend chur ch or church services? Never 08/01/2023 Do you belong to any clubs o r organizations such as yazdanism groups, unions, fraternal or athletic groups, or [...] place to sleep or slept in a mcc (including now)? No 08/01/2023 Personal Safety Answer [...] 10/23/2024 1:11 PM CDT Plan of Treatment Not on file Medical Devices Implanted Type Area Tool Grinder Operator Surface Device Identifier Shelf Expiration Date Model / Serial / Lot Cervical Spine Fusion Instrumentation Spine Cervical Xcela Power Port 8fr [id number] - [id number] Implanted:Qty: 1 on 12/01/2021 at [facility] [employer] 09/08/2026 [id number] / / [id number] Procedures Procedure Name Priority Date/Time Associated Diagnosis [...] AND COVID-19 PCR Routine 08/29/2024 3:58 PM BELLMAN Acute cough XR CHEST PA LATERAL 2 VIEWS Schedule DONN, Read DONN (Appt Today, Awaiting Results) 08/29/2024 3:56 PM BELLMAN Sore throat POCT RAPID STREP Routine 08/29/2024 3:47 PM BELLMAN Sore throat EGFR Routine 08/22/2024 10:06 AM BELLMAN Deep vein thrombosis (DVT) of right lower extremity, unspecified chronicity, unspecified vein (HCC) DIFFERENTIAL AUTO Routine 08/22/2024 10: 06 AM BELLMAN Deep vein thrombosis (DVT) of right lower extremity, unspecified chronicity, unspecified vein (HCC) CBC WITH AUTO DIFFERENTIAL Routine 08/22/2024 10:06 AM BELLMAN Deep vein thrombosis (DVT) of right lower extremity, unspecified chronicity, unspecified vein (HCC) COMPREHENSIVE METABOLIC PANEL Routine 08/22/2024 10:06 AM BELLMAN Deep vein thrombosis (DVT) of right lower [...] MD LAB BLOOD ORDERABLES Final Re sult [facility] Department [place] [address] * Differential, auto (10/04/2024 10:38 AM CDT) Neutrophil abs 6.1 1.5 - 6.5 K/cumm Comment:Testing performed by : [facility], [address] [place] [address] Imm gran abs 0.0 0.0 - 0.1 K/cumm [facility] Lymphocyte abs 1.0 0.8 - 3.3 K/cumm [facility] Monocyte abs 0.6 0.2 - 0.8 K/cumm [facility] Eosinophil abs 0.2 0.0 - 0.5 K/cumm [facility] Basophil abs 0.0 0.0 - 0.1 K/cumm [facility] Neutrophil pct 76.1 % [facility] Comment: Interpretive Data Percent cell count reference ranges are not reported, since discordance with absolute values may lead to misinterpretation of CBC data. Current Interpretive Data was last revised on 2017. Imm gran pct 0.2 % [facility] Comment: Interpretive Data Percent cell count reference ranges are not reported, since discordance with absolute values may lead to misinterpretation of CBC data. Current Interpretive Data was last revised on 2017. Lymphocyte pct 12.7 % [facility] Comment: Interpretive Data Percent cell count reference ranges are not reported, since discordance with absolute values may lead to misinterpretation of CBC data. Current Interpretive Data was last revised on 2017. Monocyte pct 7.6 % [facility] Comment: Interpretive Data Percent cell count reference ranges are not reported, since discordance with absolute values may lead to misinterpretation of CBC data. Current Interpretive Data was last revised on 2017. Eosinophil pct 2.9 % [facility] Comment: Interpretive Data Percent cell count reference ranges are not reported, since discordance with absolute values may lead to misinterpretation of CBC data. Current Interpretive Data was last revised on 2017. Basophil pct 0.5 % [facility] Comment: Interpretive Data Percent cell count reference ranges are not reported, since discordance with absolute values may lead to misinterpretation of CBC data. Current Interpretive Data was last revised on 2017. Blood 10/04/2024 10:3 8 AM CDT 10/04/2024 10:41 AM CDT Herbert Hung MD LAB BLOOD ORDERABLES Final Re sult [facility] Department [place] [address] * CBC with auto differential (10/04/2024 10:38 AM CDT) WBC 8.0 3.8 - 9.9 K/cumm Comment:Testing performed by : [address] [address] Hgb 14.0 13.0 - 17.5 g/dL [facility] Comment:Testing performed by : [address] [address] Hct 43.4 38.9 - 50.3 % [facility] Comment:Testing performed by : [address] [address] Plt 240 150 - 400 K/cumm [facility] Comment:Testing performed by : [address] [address] MPV 9.9 9.1 - 12.[address] [facility] RBC 5.02 4.30 - 5.80 M/cumm [facility] MCV 86.5 81.3 - 96.[address] [facility] MCH 27.9 27.1 - 33.[address] [facility] MCHC 32.3 32.3 - 35.7 g/dL [facility] RDW CV 14.6 11.1 - 14.9 % [facility] RDW SD 45.8 35.7 - 48.[address] [facility] NRBC abs 0.00 0.00 - 0.01 K/cumm [facility] Blood 10/04/2024 10:3 8 AM CDT 10/04/2024 10:41 AM CDT us Herbert Hung MD LAB BLOOD ORDERABLES Final Re sult Performing Organization Address [facility] Co de Phone Number [facility] [place] [address] * (ABNORMAL) Erythropoietin (10/04/2024 10:38 AM CDT) Pathologist [facility] Erythropoietin 22.8(H) 2.6 - 18.5 mIUnits/m L [place] ref Lab Comment: Test Performed by: [facility] [address] [place] [address] Pairer Odds: Susan Love Ph.D.; CLIA# [id number] Blood 10/04/2024 10:3 8 AM CDT 10/04/2024 12:19 PM CDT us Ruth Marie MD LAB BLOOD ORDERABLES Rhiannon l Result Performing Organization Address City/[facility]/ZIP Co de Phone Number [facility] [place] [address] [place] ref Lab * [facility] profile (10/04/2024 10:38 AM CDT) Pathologist [facility] RBC-CD59 Test Completed [facility] WBC-CD59 Test Completed [facility] FLAER Test Completed [facility] Interpretation See separate Surgical Pathology report. [facility] Blood 10/04/2024 10:3 8 AM CDT 10/04/2024 1:55 PM CDT Narrative [facility] - 10/05/2024 9:25 AM CDT This test was developed and its performance characteristics determined by the [facility] Flow Cytometry Laboratory. It has not been [...] ORDERABLES Rhiannon l Result Performing Organization Address [facility]/ZIP Co de Phone Number [facility] Department [place] [address] * Vitamin D 25 hydroxy (10/04/2024 10:38 AM CDT) Vitamin D 25-OH 34 30 - 80 ng/mL Blood 10/04/2024 10:3 8 AM CDT 10/04/2024 12:01 PM CDT Herbert Hung MD LAB BLOOD ORDERABLES Final Re sult Performing Organization Address City/[facility] Co de Phone Number [facility] Department [place] [address] * CEA (10/04/2024 10:38 AM CDT) CEA 1.2 <=5.0 ng/mL Comment: Interpretive Data: Reference Range: Non-Smokers: 0.0 5.0 ng/mL Smokers: 0.0 6.5 ng/mL The [employer] CEA assay procedure was used. Results from different manufacturers or methods may not be comparable. Serial testing should be performed using the same method. Current interpretive data was last revised 2021. Blood 10/04/2024 10:3 8 AM CDT 10/04/2024 12:01 PM CDT us Herbert Hung MD LAB BLOOD ORDERABLES Final Re sult [facility] Department [place] [address] * Comprehensive metabolic panel (10/04/2024 10:38 AM CDT) Sodium 137 135 - 145 mmol/L Comment:Testing performed by : [facility], [address] [place] [address] Potassium, pl 4.5 3.3 - 4.9 mmol/L [facility] Chloride 103 97 - 110 mmol/L [facility] CO2 28 22 - 32 mmol/L [facility] Anion gap 6 2 - 15 mmol/L [facility] BUN 11 6 - 25 mg/dL [facility] Creatinine 1.07 0.80 - 1.30 mg/dL [facility] Glucose 103 70 - 199 mg/dL [facility] Comment: Interpretive Data Fasting glucose [...] 2022. Calcium 9.1 8.5 - 10.3 mg/dL [facility] Bilirubin, total 0.4 0.1 - 1.2 mg/dL [facility] Protein, pl 7.1 6.5 - 8.5 g/dL [facility] Albumin 4.3 3.5 - 5.0 g/dL [facility] Alk phos 68 40 - 130 Units/L [facility] ALT 35 7 - 55 Units/L [facility] AST 31 10 - 50 Units/L [facility] Blood 10/04/2024 10:3 8 AM CDT 10/04/2024 10:41 AM CDT us Herbert Hung MD LAB BLOOD ORDERABLES Final Re sult [facility] Department [place] [address] * Surgical pathology (10/04/2024 10:38 AM CDT) Peripheral Blood For Pathologist Review 10/04/2024 10:38 AM CDT 10/04/2024 1:56 PM CDT Narrative 10/05/2024 11:15 AM CDT EPIC results best viewed via link to PDF [facility] Karyn Kam Laboratory of [place] [address] Note to Patients: This report may contain [...] Gender: M : 1965 (Age: 59) Address: [facility] [place] [address] Hospital #: [id number] Taken:10/04/2024 Received:10/04/2024 Reported: 10/05/2024 Patient Type: [facility] Service: Laboratory Location: Physician(s): Herbert Hung M.D. Diagnosis: Peripheral blood for flow cytometry: - No immunophenotypic evidence of Paroxysmal nocturnal hemoglobinuria hoxu/10/05/2024 10:37 By this signature, I attest that [...] antibodies to the following cellular antigens: CD45, RX790b, CD15, CD59, FLAER. Total antigens analyzed: 5 [...] Surgical Pathology and Flow Cytometry Departments at [facility] as part of an ongoing quality assurance specialist program and in compliance with federally mandated [...] Surgical Pathology and Flow Cytometry Departments of [facility]. It has not been cleared or approved by the U. S. Food and Drug Administration. IMAGES AND SCANNED DOCUMENTS, IF INCLUDED, ONLY VIEWABLE IN PDF VERSION OF REPORT Herbert Hung MD LAB PATHOLOGY ORDERABLES Rhiannon l Result * Cytogenetics Blood (10/04/2024 10:28 AM CDT) Blood (Peripheral Blood For Pathologist Review) 10/04/2024 10:28 AM CDT 10/04/2024 10:[address] [facility] DIAGNOSTIC LAB - CYTOGENETICS - 10/11/2024 10:01 PM CDT [facility] results best viewed via link to PDF [facility] Department of Pathol [facility] [place] [address] Patient Information Name: MATTHEW MONTEMAYOR Gender: M : 1965 (Age: 59) Tissue: Leukemic Blood Visit Information Hospital #: [id number] Facility: [facility] Service: [facility] Location: [facility] OUTREACH Patient Type: WUAMP Specimen Information: Culture #: [id number] Date Collected: 10/04/2024 Date Accessioned: 10/05/2024 Date [...] Hybridization (FISH) analysis are performed using the [employer] Cytovision Imaging System. Report Electronically Reviewed and Signed Out By Candida Valera MD, [facility], FAAPDate Reported: 10/11/2024Professor, Division of Genomic & Molecular Pathology us Ruth Marie MD LAB GENETIC TESTING Final Result [facility] DIAGNOSTIC LAB - CYTOGENETICS [address] [place] [address] * CT chest abdomen pelvis with contrast [...] small volume presacral fluid. Dictated by: René hZou MD The radiology attending physician has personally reviewed this study, and had reviewed and/or edited this written report and agrees with it. Electronically signed by: Craig Ivey M.D. Herbert Hung MD IMG CT PROCEDURES Final Resul t * POCT creatinine (10/04/2024 9:53 AM CDT) Pathologist [facility] Creatinine POC 1.1 0.8 - 1.3 mg/dL Blood 10/04/2024 9:53 AM CDT 10/04/2024 9:53 AM CDT Herbert Hung MD LAB POCT ORDERABLES - DEVICE Final Result [facility] Department [place] [address] * Influenza A/B, RSV, and COVID-19 PCR Nasopharyngeal (08/29/2024 3:58 PM BELLMAN) [facility] COVID-19 RNA Negative Negative Influenza A RNA Negative Negative [facility] Influenza B RNA Negative Negative [facility] RSV RNA Negative Negative [facility] Comment: Interpretive data: Testing performed by [facility]. This test is performed using the [facility] Xpert Xpress CoV-2/Flu/RSV plus assay. This is a multiplex, real-time reverse transcriptase PCR assay intended for the qualitative detection of nucleic acid from SARS-CoV-2, influenza A, influenza B, and respiratory syncytial virus. This assay has been cleared by the [place] Food and Drug administration. The performance characteristics have been verified by the [facility]. Results must be considered in the clinical context, and a negative result does not rule out infection. Interpretive Data last revised 2023 Nasopharyngeal 08/29/2024 3: 58 PM BELLMAN 08/29/2024 6:06 PM BELLMAN Narrative [facility] - 08/29/2024 8:34 PM BELLMAN Is the Patient experiencing symptoms consistent with COVID?->Yes Reason for testing?->Symptomatic Is the patient experiencing any symptoms consistent with COVID (eg. Fever, cough, shortness of breath)?->Yes Nita Fisher CLOUD SYSTEMS ADMINISTRATOR LAB MICROBIOLOGY - GENERAL ORDERABLES Final Result [facility] [address] Department [place] [address] * XR Chest Pa Lateral 2 Views (08/29/2024 3:56 PM BELLMAN) Anatomical Region Laterality Modality Body, Chest N/A Digital Radiogra phy 08/29/2024 4:13 PM BELLMAN Narrative 08/29/2024 4:13 PM BELLMAN EXAM DESCRIPTION: XR CHEST PA LATERAL 2 [...] Joey Fritz M.D., JR T: Report ID: [id number] Reading Location: [id number] Procedure Note Joey Fritz MD - 08/29/2024 [...] PM - Electronically signed by Joey Fritz M.D. JR T: Report ID: [id number] Reading Location: [id number] Nita Fisher CLOUD SYSTEMS ADMINISTRATOR IMG XR PROCEDURES Final Re sult * POCT rapid strep A (08/29/2024 3:47 PM BELLMAN) Rapid Strep A, POC Negative Negative Swab 08/29/2024 3:47 PM BELLMAN Nita Fisher NP POINT OF CARE TEST ORDERAB LES Final Result * eGFR (08/22/2024 10:06 AM BELLMAN) Pathologist [facility] eGFR 83 >=60 mL/min/1. 73 m2 Comment: [...] reviewed 2021. Blood 08/22/2024 10:0 6 AM BELLMAN 08/22/2024 10:30 AM BELLMAN Ruth Marie MD LAB BLOOD ORDERABLES Rhiannon cordova Result [facility] Department [place] [address] * Differential, auto (08/22/2024 10:06 AM BELLMAN) Pathologist [facility] Neutrophil abs 5.7 1.5 - 6.5 K/cumm Comment:Testing performed by : [facility], [address] [place] [phone] Lymphocyte abs 1.3 0.8 - 3.3 K/cumm [facility] Comment:Testing performed by : [facility], [address] [place] [phone] Monocyte abs 0.6 0.2 - 0.8 K/cumm [facility] Comment:Testing performed by : [facility], [address] [place], [place] [phone] Eosinophil abs 0.2 0.0 - 0.5 K/cumm [facility] Comment:Testing performed by : [facility], [address] [place] [phone] Basophil abs 0.1 0.0 - 0.1 K/cumm [facility] Comment:Testing performed by : [facility], [address] [place] [phone] Neutrophil pct 73.4 % [facility] Comment: Interpretive Data Percent cell count reference ranges are not reported, since discordance with absolute values may lead to misinterpretation of CBC data. Current Interpretive Data was last revised on 2017. Testing performed by: [facility], [address] [place] [phone] Lymphocyte pct 16.2 % [facility] Comment: Interpretive Data Percent cell count reference ranges are not reported, since discordance with absolute values may lead to misinterpretation of CBC data. Current Interpretive Data was last revised on 2017. Testing performed by: [facility], [address] [place] [phone] Monocyte pct 7.1 % [facility] Comment: Interpretive Data Percent cell count reference ranges are not reported, since discordance with absolute values may lead to misinterpretation of CBC data. Current Interpretive Data was last revised on 2017. Testing performed by: [facility], [address] [place] [phone] Eosinophil pct 2.3 % [facility] Comment: Interpretive Data Percent cell count reference ranges are not reported, since discordance with absolute values may lead to misinterpretation of CBC data. Current Interpretive Data was last revised on 2017. Testing performed by: [facility], [address] [place] [phone] Basophil pct 1.0 % [facility] Comment: Interpretive Data Percent cell count reference ranges are not reported, since discordance with absolute values may lead to misinterpretation of CBC data. Current Interpretive Data was last revised on 2017. Testing performed by: [facility], [address] [place] [phone] Blood 08/22/2024 10:0 6 AM BELLMAN 08/22/2024 10:26 AM BELLMAN us Ruth Marie MD LAB BLOOD ORDERABLES Rhiannon cordova Result [facility] Department [place] [address] * CBC with auto differential (08/22/2024 10:06 AM BELLMAN) WBC 7.7 3.8 - 9.9 K/cumm Comment:Testing performed by : [facility], [address] [place] [phone] Hgb 13.3 13.0 - 17.5 g/dL [facility] Comment:Testing performed by : [facility], [address] [place] [address] Hct 41.0 38.9 - 50.3 % [facility] Comment:Testing performed by : [facility], [address] [place] [address] Plt 234 150 - 400 K/cumm [facility] Comment:Testing performed by : [facility], [address] [place] [phone] MPV 8.3 6.8 - 10.4 fL [facility] Comment:Testing performed by : [facility], [address] [place], [place] [phone] RBC 4.75 4.30 - 5.80 M/cumm [facility] Comment:Testing performed by : [facility], [address] [place] [address] MCV 86.3 81.3 - 96.4 fL [facility] Comment:Testing performed by : [facility], [address] [place], [place] [id number] MCH 28.1 27.1 - 33.3 pg [facility] Comment:Testing performed by : [facility], [address] [place] [address] MCHC 32.6 32.3 - 35.7 g/dL [facility] Comment:Testing performed by : [facility], [address] [place] [address] RDW CV 13.8 11.1 - 14.9 % [facility] Comment:Testing performed by : [facility], [address] [place], [place] [id number] NRBC abs 0.00 0.00 - 0.01 K/cumm [facility] Comment:Testing performed by : [facility], [address] [place], [place] [id number] Blood 08/22/2024 10:0 6 AM BELLMAN 08/22/2024 10:26 AM BELLMAN us Ruth Marie MD LAB BLOOD ORDERABLES Rhiannon cordova Result [facility] Department [place] [address] * Comprehensive metabolic panel (08/22/2024 10:06 AM BELLMAN) Sodium 141 135 - 145 mmol/L Potassium, pl 4.1 3.3 - 4.9 mmol/L [facility] Chloride 107 97 - 110 mmol/L [facility] CO2 27 22 - 32 mmol/L [facility] Anion gap 7 2 - 15 mmol/L [facility] BUN 10 6 - 25 mg/dL [facility] Creatinine 1.04 0.80 - 1.30 mg/dL [facility] Glucose 111 70 - 199 mg/dL [facility] Comment: Interpretive Data Fasting glucose [...] 2022. Calcium 9.4 8.5 - 10.3 mg/dL [facility] Bilirubin, total 0.3 0.1 - 1.2 mg/dL [facility] Protein, pl 7.1 6.5 - 8.5 g/dL [facility] Albumin 4.0 3.5 - 5.0 g/dL [facility] Alk phos 84 40 - 130 Units/L [facility] ALT 19 7 - 55 Units/L [facility] AST 23 10 - 50 Units/L [facility] Blood 08/22/2024 10:0 6 AM BELLMAN 08/22/2024 10:30 AM BELLMAN us Ruth Marie MD LAB BLOOD ORDERABLES Rhiannon cordova Result Performing Organization Address City/State/[facility] Co de Phone Number [facility] Department [place] [address] * PSA screen (10/25/2023 11:00 AM CDT) [...] DO LAB BLOOD ORDERABLES Fin al Result [facility] Department [place] [address] from Last 3 Months or Most Recently Relevant to Health Maintenance Insurance [facility] Address: [facility] [id number] [place] [address] GENERIC COPAY ASSIST [facility] [employer] [facility] Advance Directives For more information, please contact: [phone] * Full Code (Latest Code Status on [...] 1:46 PM 04/17/2022 10:20 PM Care Teams Gasoline Finisher Relationship Specialty [place] [address] [place] [id number] PCP - General Family Medicine 02/01/23 Victor M Hernández MD [phone] [place] [address] Surgeon Colon and Rectal Surgery 10/27/21 Luis Felipe Branham MD [address] [place] [address] Interlocking And Signal Mechanic Gastroenterology 10/27/21 Herbert Hung MD [address] [facility] [address] [place] [address] Medical Oncologist Medical Oncology 11/10/21
[2024-10-31 17:05] VITALS: BP 115/71; PULSE 86; RESP 16; TEMP 36.9; O2SAT 98
== END 2024-10-31 17:48 | disposition home or self-care (01) ==
PROVIDERS: Emergency Provider Nurse Practitioner Family; PCP Family Medicine
DX: S30.860A Insect bite (nonvenomous) of lower back and pelvis, initial encounter (principal); L03.317 Cellulitis of buttock; W57.XXXA Bitten or stung by nonvenomous insect and other nonvenomous arthropods, initial encounter; E66.9 Obesity, unspecified; Z79.01 Long term (current) use of anticoagulants; Z85.038 Personal history of other malignant neoplasm of large intestine; Z68.29 Body mass index [BMI] 29.0-29.9, adult
CPT/HCPCS: 87070; 87075; 87205; 99213; G0463